=== PATIENT | female | born 1970 | race Caucasian/White ===

== ENCOUNTER → 2017-02-11 | Outpatient (CLI) | payer BC, MEDICARE ==
[2017-02-11 16:00] LABS: Basophils % (A) 0 %; CHCM 32.9; Eosinophils # (A) 0.6 k/uL (0-0.7); Eosinophils % (A) 6 %; HCT 41.8 % (34.0-46.0); HDW 2.54; Luc # (Auto) 0.19; Luc % (Auto) 2; Lymphocytes # (A) 2.3 k/uL (1.0-4.8); Lymphocytes % (A) 24 %; MCH 29.6 pg (25.0-35.0); MCHC 33.4 g/dL (31.0-37.0); MCV 88.5 fL (80.0-100.0); Mean Platelet Volume 6.5; Monocytes # (A) 0.6 k/uL (0-1.0); Monocytes % (A) 6 %; Neutrophils % (A) 62 %; RBC 4.73 m/uL (3.80-5.40); RDW 12.6 % (11.5-15.5); WBC 9.7 k/uL (3.8-10.6); WBC (Perox) 10.13
== END | disposition home or self-care (01) ==
LOC: LABPAT 15:45
PROVIDERS: ATTEND Obstetrics & Gynecology
DX: Z01.812 Encounter for preprocedural laboratory examination (principal)
CPT/HCPCS: 85025

== ENCOUNTER 2017-03-01 08:30 | Inpatient (IN) | payer BC, MEDICARE ==
[2017-02-21 13:54] VITALS: BMI 40.2
[~2017-03-01 08:30] MED LIST: ACETAMINOPHEN TAB 500 MG TAB PO ONE; LIDOCAINE 1% 20 ML VIAL (10MG/ML) FOR IV START INTRADERMA PRN; METOCLOPRAMIDE 5 MG/ML 2 ML VIAL IVP PRN; MIDAZOLAM 2 MG/2 ML VIAL IV PRN; ONDANSETRON 4 MG/2 ML VIAL IVP PRN
[2017-03-01] MEDS ORDERED: LACTATED RINGERS 1,000 ML IV ONE (09:50)
[2017-03-01] MEDS ORDERED: diphenhydrAMINE 50 MG/ML 1 ML VIAL IVP PRN (10:22)
[2017-03-01] MEDS ORDERED: Acetaminophen-Codeine 300-30mg TAB PO PRN (10:22)
[2017-03-01] MEDS ORDERED: IBUPROFEN 600 MG TAB PO PRN (10:22)
[2017-03-01] MEDS ORDERED: SUCCINYLCHOLINE CHLORIDE 100 MG/5 ML SYR IV ONE (11:28)
[2017-03-01] MEDS ORDERED: PROPOFOL 10 MG/ML 20 ML VIAL IV ONE (11:28)
[2017-03-01] MEDS ORDERED: fentaNYL (PF) 50 MCG/ML 2 ML AMP ONE (11:28)
[2017-03-01] MEDS ORDERED: MIDAZOLAM 2 MG/2 ML VIAL ONE (11:28)
[2017-03-01] MEDS ORDERED: ROCURONIUM BROMIDE 10 MG/ML 10 ML VIAL IV ONE (11:28)
[2017-03-01] MEDS ORDERED: LIDOCAINE 1% INJ 10MG/ML (20 ML MDV) ONE (11:28)
[2017-03-01] MEDS ORDERED: GLYCOPYRROLATE 0.2 MG/ML 2 ML VIAL ONE (11:28)
[2017-03-01] MEDS ORDERED: HYDROmorphone (PF) 1 MG/ML ONE (11:28)
[2017-03-01] MEDS ORDERED: NEOSTIGMINE 1 MG/ML 10 ML VIAL ONE (11:28)
[2017-03-01] MEDS ORDERED: SORBITOL 3% IRRIG 3,000 ML BAG IRRIGATION ONE (11:48)
[2017-03-01] MEDS ORDERED: BUPIVACAINE (PF) 0.5% 30 ML VIAL SQ ONE (11:48)
[2017-03-01] MEDS: LACTATED RINGERS 1,000 ML IV SCH ×2 (12:00→14:26)
[2017-03-01] MEDS ORDERED: SODIUM CHLORIDE 0.9% 100 ML with ceFAZolin 2,000 MG IV ONE ×2 (12:06)
[2017-03-01] MEDS ORDERED: CELLULOSE,OXIDIZED 1 EACH EACH MISCELLANE ONE (12:43)
[2017-03-01] MEDS ORDERED: NALOXONE 0.4 MG/ML 1 ML VIAL IV PRN (13:03)
[2017-03-01] MEDS ORDERED: HYDROmorphone PCA 5 MG/25 ML SYRINGE IV PRN (13:03)
--- NOTE | 2017-03-01 13:16 | P.OP ---
Date of Procedure: 03/01/17 Preoperative Diagnosis: #1. 6 cm simple right ovarian cyst #2. Dysfunctional uterine bleeding Postoperative Diagnosis: Same plus #3. Right ovarian endometrioma #4. Pelvic adhesive disease Procedure(s) Performed: #1. Diagnostic laparoscopy 2. Exploratory laparotomy #3. Adhesiolysis #4. Right salpingo-oophorectomy #5. Diagnostic hysteroscopy #. Dilation and curettage Implants: Anesthesia: NAM Surgeon: Buddy Back Manager Grant #1: Elisha Campbell Estimated Blood Loss (ml): 100 IV fluids (ml): 800 Urine output (ml): 70 Pathology: other (#1. Right tube and ovary #2. Endometrial curettings) Condition: stable Disposition: PACU Indications for Procedure: Operative Findings: Preoperative pelvic examination demonstrated a right adnexal fullness with an otherwise roughly 5 week midplane uterus. Intraoperatively, the laparoscope demonstrated a large right ovarian cyst/mass occupying the entire right ovarian fossa. The uterus was densely adherent to it and it was immobile in the pelvis. I was unable to visualize the left tube and ovary. After converting to an open procedure, the ovary was confirmed to be densely adherent into the ovarian fossa and to the back of the uterus. During the process of dissecting it bluntly from the uterus and ovarian fossa, it ruptured spilling chocolate covered fluid into the Danilo. This was thoroughly suctioned and irrigated. The uterus was densely adherent to the rectum with the cul-de-sac entirely obliterated. I was unable to identify the left tube and ovary secondary to dense adhesions as well. Using the hysteroscope, some fluffy tissue was noted inside the cavity of the uterus but there was no clear polyps or significant other pathology noted. The uterus itself sounded to approximately 8 cm in size. A small to moderate amount of tissue was removed with D&C. Description of Procedure: The patient was prepped and draped in usual fashion after general endotracheal anesthesia was administered by the anesthesiologist. Weighted speculum was placed in the anterior lip of the surgical single-tooth tenaculum allowing placement of an acorn cannula. Attention was then turned to the abdomen after draining the bladder approximately 30 mL of clear liz urine. A half a centimeter incision was made in a semilunar fashion within the umbilicus allowing insertion of a 5 mm trocar under direct visualization without difficulty. A pneumoperitoneum was created and a site selected in the midline just above the pubic symphysis where a half a centimeter incision was made in the transverse plane allowing insertion of a 5 mm trocar under direct visualization without difficulty. The blunt probe was then placed in Trendelenburg positioning used with the findings as noted above. The ovary was densely adherent into the fossa and to the posterior portion of the uterus. The uterus was densely adherent to the rectum below it and the left tube and ovary could not be identified. As it was apparent that we would be unable to proceed laparoscopically, the pneumoperitoneum was evacuated through the umbilical incision and the incision closed with an interrupted subcuticular stitch of 4-0 Vicryl. The remainder trocar was removed and the incision extended to a small laparotomy. This was extended into the abdominal cavity with minimal difficulty. Pelvic washings were taken and the pelvis explored with the findings as noted above. Gentle blunt dissection was carried out to attempt to free and mobilize the ovary from the surrounding tissues. Along the ovarian fossa just superior to the ovary, the cyst ruptured spilling chocolate- colored fluid into the pelvis. Further blunt dissection was carried out to free the majority of the ovary and tubal complex. A Elizabeth retractor was placed and the bowel was packed from the pelvis allowing better exposure. Once it was apparent that the tubo-ovarian complex was free enough, [place] clamps were placed across it at the utero ovarian ligament and across the tube as well as across the infundibulopelvic ligament and underneath the tube allowing the tips to meet. The specimen was then divided from the patient with an intervening open portion in the midportion clamped with a Florecita clamp. Each of the pedicles was suture-ligated with a transfixion stitch of 0 Vicryl. There was clearly some ovarian capsule left attached to the sidewall. As much as could be safely removed was removed and sent with the specimen but is relatively likely that a portion of the ovarian capsule remains on the pelvic sidewall. Significant and thorough irrigation was then carried out and any small points of bleeding noted in the pelvis were made hemostatic with the Bovie. There was no apparent evidence of the sigmoid colon or rectum having any involvement with the adhesions or any apparent damage. Once the bleeding was minimal and well controlled, a piece of Interceed was placed into the surgical bed and across the utero-ovarian ligament to attempt to decrease further adhesions. The instrumentation and packing were then removed and the parietal peritoneum was loosely reapproximated. The layer of muscles were examined and found to be hemostatic. The fascia was closed with 2 running stitches of 0 Vicryl proceeding from the lateral margins to the midpoint. The subcutaneous tissues were irrigated, made hemostatic with the Bovie, and reapproximated with a running stitch of 0 Vicryl. The skin was reapproximated with regular surgical lewis. Attention was then returned to the vagina where the weighted speculum was replaced and acorn cannula removed. Serial dilation was carried out to admit the diagnostic hysteroscope which was placed into the endometrial cavity. There was fluffy tissue noted throughout but technical difficulties were encountered secondary to the scope impacting the patient's bottom and the retractors making exploration of the fundus of the uterus more difficult. As the specimen was more important, the hysteroscopy was abandoned and further dilation carried out to admit a small sharp curette which was utilized to thoroughly and circumferentially curet the uterus and endometrial cavity with the specimen being collected on a Telfa placed in the vagina. Once adequate specimen had been retrieved and the typical gritty texture was encountered, the polyp forceps was introduced and no further tissue noted. Allis her mentation was then removed. There was no ongoing bleeding from the tenaculum sites. Estimated blood loss for the entire case was approximately 100 mL. There were no complications aside from the need to convert to a laparotomy rather than a laparoscopy. All sponge, instrument, and needle counts were correct for each portion of the procedure. The patient tolerated the procedure well and proceeded to the recovery room in stable condition
[2017-03-01] MEDS: HYDROmorphone 1 MG/ML 1 ML SYRINGE IVP PRN ×2 (13:30→13:50)
[2017-03-01] MEDS ORDERED: METOCLOPRAMIDE 5 MG/ML 2 ML VIAL IVP PRN (17:14)
[2017-03-01] MEDS ORDERED: ONDANSETRON 4 MG/2 ML VIAL IVP PRN (17:15)
[2017-03-01] MEDS: KETOROLAC 30 MG/ML 1 ML VIAL IVP PRN ×2 (18:06→23:45)
[2017-03-01] MEDS: ALBUTEROL NEBULIZED 2.5 MG/3 ML INHALATION PRN (21:05)
[2017-03-01] MEDS: SENNOSIDES-DOCUSATE SODIUM 1 EACH TAB PO SCH (21:51)
[2017-03-02] MEDS: KETOROLAC 30 MG/ML 1 ML VIAL IVP PRN ×3 (05:14→18:25)
[2017-03-02] MEDS: LACTATED RINGERS 1,000 ML IV SCH (05:14)
[2017-03-02 06:40] LABS: Basophils % (A) 0 %; CH 29.2; CHCM 31.9; Eosinophils # (A) 0.2 k/uL (0-0.7); Eosinophils % (A) 1 %; HCT 35.9 % (34.0-46.0); HDW 2.11; HGB 11.5 gm/dL (11.4-16.0); Luc # (Auto) 0.23; Luc % (Auto) 2; Lymphocytes # (A) 2.2 k/uL (1.0-4.8); Lymphocytes % (A) 18 %; MCH 29.4 pg (25.0-35.0); Mean Platelet Volume 6.8; Monocytes # (A) 0.9 k/uL (0-1.0); Monocytes % (A) 7 %; Neutrophils % (A) 72 %; RDW 13.3 % (11.5-15.5); WBC 12.5 k/uL (3.8-10.6)
[2017-03-02] MEDS: ALBUTEROL NEBULIZED 2.5 MG/3 ML INHALATION PRN (07:32)
--- NOTE | 2017-03-02 08:29 | P.PN ---
Subjective The patient reports good pain control but denies any flatus at this time. She is hoping to ambulate. Objective - Vital Signs Vital signs: Vital Signs Temp 98.3 F 03/02/17 00:00 Pulse 80 03/02/17 07:43 Resp 20 03/02/17 00:00 BP 101/52 03/02/17 00:00 Pulse Ox 94 L 03/02/17 07:33 Intake & Output 03/01/17 03/02/17 03/02/17 18:59 06:59 18:59 Intake Total 2150 360 Output Total 200 675 Balance 1950 -315 Intake: IV 2150 Oral 360 Output: Urine 100 675 Estimated Blood Loss 100 Other: Voiding Method Indwelling Catheter # Voids 1 - Exam In general, this is a well-developed, moderately obese white female in no acute distress. Her abdomen is nondistended, obese, soft, nontender, and without any palpable masses. The incision is clean, dry, and intact after the dressing has been removed. Her extremities are without any cyanosis, clubbing, or edema and are nontender to palpation bilaterally. - Labs CBC & Chem 7: 03/02/17 06:20 Labs: Abnormal Lab Results - Last 24 Hours (Table) 03/02/17 Range/Units 06:20 WBC 12.5 H (3.8-10.6) k/uL Neutrophils # 9.0 H (1.3-7.7) k/uL Assessment and Plan (1) Endometrioma of ovary Status: Acute Plan: The findings at the time surgery were thoroughly discussed with the patient. We will advance her diet slowly. Once gas is passed, her diet will be advanced to regular. I have strongly encouraged ambulate in the halls routinely. 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
[2017-03-02] MEDS: SENNOSIDES-DOCUSATE SODIUM 1 EACH TAB PO SCH ×2 (08:40→20:35)
[2017-03-02] MEDS: Acetaminophen-Codeine 300-30mg TAB PO PRN ×2 (08:40→09:50)
[2017-03-02] MEDS: IPRATROPIUM-ALBUTEROL 3 ML NEB INHALATION PRN ×2 (15:49→20:55)
[2017-03-02] MEDS: SIMETHICONE 80 MG CHEWABLE PO PRN (20:46)
[2017-03-03] MEDS: KETOROLAC 30 MG/ML 1 ML VIAL IVP PRN ×2 (00:22→06:46)
[2017-03-03 00:33] VITALS: RESP 16
[2017-03-03] MEDS: SIMETHICONE 80 MG CHEWABLE PO PRN (06:59)
--- NOTE | 2017-03-03 08:02 | P.DS ---
Providers Date of admission: 03/01/17 13:10 Expected date of discharge: 03/03/17 Attending physician: Buddy Back Primary care physician: David Augustine - Discharge Diagnosis(es) (1) Endometrioma of ovary Current Visit: Yes Status: Acute Hospital Course: The patient is a 46-year-old woman initially referred for findings of dysfunctional uterine bleeding and a reported 6 cm simple right ovarian cyst. After discussion the office for options the for treatment, we agreed to proceed to the operating room for laparoscopic removal of the right tube and ovary and hysteroscopy with D&C. In the operating room, she was found to have the mass be significantly larger than it was initially reported and it was densely adherent to the posterior portion of the uterus as well as the ovarian fossa and sigmoid colon/rectum. No progress could be made laparoscopically leading to exploratory laparotomy. At laparotomy, the right tube and ovary were mobilized enough to be able to remove them though a portion or remnant of the ovary may remain on the pelvic sidewall. The cyst was ruptured intraoperatively and spilled chocolate covered fluid into the pelvis consistent with an endometrioma. The left tube and ovary could not be identified secondary to adhesive disease and the cul-de-sac had been entirely obliterated. The D&C was carried out following laparotomy and the a minimal to average amount of tissue was returned. Pathology is pending for all at this time though the pelvic washings were negative. She had a relatively uncomplicated postoperative course and was tolerating regular diet by the morning of postoperative day #2. Gas was regular and her pain was well controlled with oral pain medications. She was deemed stable for discharge on postoperative day #2 was discharged home to follow-up in the office in 2 weeks for an incision check and 6 weeks routinely. Discharge instructions included calling for any significantly increased from fever, pain, incisional complaints, GI concerns, or anything else that concerned her. She was additionally instructed to do no heavy lifting over the next 4-6 weeks. Consideration will be made for treatment with Lupron in the outpatient phase and will depend to some degree upon her degree of discomfort after removal of the right tube and ovary. She understood her instructions and agrees to follow up as noted above. Discharge medications included any home medications that she takes on a routine basis as well as a prescription for Ultram, 1-2 by mouth every 6 hours when necessary pain, #30 dispensed with no refills. Discharge hemoglobin and hematocrit were 11.5 and 35.9 respectively. Procedures: #1. Diagnostic laparoscopy #2. Exploratory laparotomy #3. Adhesio lysis #4. Right salpingo-oophorectomy #5. Diagnostic hysteroscopy #6. Dilation and curettage Patient Condition at Discharge: Stable Plan - Discharge Summary New Discharge Prescriptions: No Action Ibuprofen 800 - 1,000 mg PO TID PRN PRN Reason: Pain Fluticasone/Salmeterol [Advair 500-50 Diskus] 1 inhalation PO RT-BID Albuterol Sulfate [Proair Hfa] 1 - 2 puff INHALATION RT-Q6H PRN PRN Reason: sob Ipratropium-Albuterol Nebulize [Duoneb 0.5 mg-3 mg/3 ml Soln] 1 dose INHALATION RT-QID PRN PRN Reason: sob Acetaminophen [Tylenol Extra Strength] 1,000 mg PO Q4H PRN PRN Reason: Pain Cetirizine HCl [Zyrtec] 10 mg PO DAILY diphenhydrAMINE [Benadryl] 25 mg PO DAILY PRN PRN Reason: Congestion Discharge Medication List Acetaminophen [Tylenol Extra Strength] 1,000 mg PO Q4H PRN 02/21/17 [History] Albuterol Sulfate [Proair Hfa] 1 - 2 puff INHALATION RT-Q6H PRN 02/21/17 [ History] Cetirizine HCl [Zyrtec] 10 mg PO DAILY 02/21/17 [History] Fluticasone/Salmeterol [Advair 500-50 Diskus] 1 inhalation PO RT-BID 02/21/17 [ History] Ibuprofen 800 - 1,000 mg PO TID PRN 02/21/17 [History] Ipratropium-Albuterol Nebulize [Duoneb 0.5 mg-3 mg/3 ml Soln] 1 dose INHALATION RT-QID PRN 02/21/17 [History] diphenhydrAMINE [Benadryl] 25 mg PO DAILY PRN 02/21/17 [History] Follow up Appointment(s)/Referral(s): Budyd Back MD [STAFF PHYSICIAN] - 2 Weeks (You have an appointment with Dr Back on) Patient Instructions/Handouts: Lysis of Abdominal Adhesions (DC), Salpingo- oophorectomy (DC) Activity/Diet/Wound Care/Special Instructions: No driving, no heavy lifting, no pools, hot tubs, or bath tubs. Limit steps. May shower. Keep steri strips in place. Notify Dr Back is you develop a fever, chills, vomitting, purulent drainage from your incision, vaginal bleeding, increasing pain, of if you have any other questions or concerns. Discharge Disposition: HOME SELF-CARE
[2017-03-03] MEDS: SENNOSIDES-DOCUSATE SODIUM 1 EACH TAB PO SCH (08:20)
[2017-03-03 08:34] VITALS: BP 113/63; TEMP 98
[2017-03-03] MEDS ORDERED: LORATADINE 10 MG TAB PO SCH (09:00)
[2017-03-03] MEDS: IPRATROPIUM-ALBUTEROL 3 ML NEB INHALATION PRN (09:07)
[2017-03-03 09:10] VITALS: PULSE 80
== END 2017-03-03 11:22 | disposition home or self-care (01) | DRG 743 ==
LOC: OR 08:30 → 6PED 13:10
PROVIDERS: ADMIT Obstetrics & Gynecology; ATTEND Obstetrics & Gynecology
PROC: 0UT50ZZ Resection of Right Fallopian Tube, Open Approach (ICD-10-PCS; principal; 2017-03-01 10:00)
PROC: 0UDB8ZX Extraction of Endometrium, Via Natural or Artificial Opening Endoscopic, Diagnostic (ICD-10-PCS; principal; 2017-03-01 10:00)
PROC: 0UT00ZZ Resection of Right Ovary, Open Approach (ICD-10-PCS; principal; 2017-03-01 10:00)
DX: N83.201 Unspecified ovarian cyst, right side (principal); J44.9 Chronic obstructive pulmonary disease, unspecified; N80.1 Endometriosis of ovary; H54.8 Legal blindness, as defined in USA; N93.8 Other specified abnormal uterine and vaginal bleeding; Z79.899 Other long term (current) drug therapy; Z88.5 Allergy status to narcotic agent; F17.200 Nicotine dependence, unspecified, uncomplicated; Z53.31 Laparoscopic surgical procedure converted to open procedure
CPT/HCPCS: 81025; 85025; 88108; 88305; 94640

== ENCOUNTER → 2017-07-29 | Outpatient (CLI) | payer BC, MEDICARE ==
--- NOTE | 2017-08-02 13:27 | CT ---
EXAMINATION TYPE: CT ChestAbdPelvis w con DATE OF EXAM: 07/29/2017 COMPARISON: Prior CT chest abdomen pelvis 03/25/2017 from outside institution. HISTORY: Ovarian cancer CT DLP: 2544.3 mGycm Automated exposure control for dose reduction was used. CONTRAST: CT scan of the chest, abdomen and pelvis is performed with Oral Contrast and with IV Contrast, patien t injected with 100 mL of Omnipaque 300. FINDINGS: Umbilical hernia is noted, some slight increased density present in the adjacent fat may be postproce dural. Midline incision is present in the infraumbilical location. Associated skin thickening present . LUNGS: The lungs are grossly clear, there is no concerning parenchymal mass or nodule identified. T here is no pleural effusion or pneumothorax seen. The tracheobronchial tree is patent. MEDIASTINUM: There are no greater than 1 cm hilar or mediastinal lymph nodes. No pericardial effusi on is seen. AORTA: No significant abnormality is seen. OTHER: No additional significant abnormality is seen. LIVER/GB: The liver remains enlarged and shows low attenuation suggestive of hepatic steatosis. Multi ple stones are present within the gallbladder as on prior. PANCREAS: No significant abnormality is seen. SPLEEN: No significant abnormality is seen. ADRENALS: No significant abnormality is seen. KIDNEYS: No significant abnormality is seen. REPRODUCTIVE ORGANS: Uterus and adnexal structures have been removed in the interval. Some minimal fl uid attenuation present in the left adnexal region may be postoperative. BOWEL: No significant abnormality is seen. FREE AIR: No Free Air visible. ASCITES: None seen. RETROPERITONEAL ADENOPATHY: No retroperitoneal adenopathy is seen. LYMPH NODES: No greater than 1 cm abdominal or pelvic lymph nodes are appreciated. URINARY BLADDER: No significant abnormality is seen. PELVIC ADENOPATHY: None visualized. OSSEOUS STRUCTURES: No significant abnormality is seen. IMPRESSION: Interval surgery. No other significant interval change evident. Cholelithiasis. Additiona l findings above.
== END | disposition home or self-care (01) ==
LOC: RADCTMAIN 12:24
PROVIDERS: ATTEND Internal Medicine Hematology & Oncology
DX: K80.20 Calculus of gallbladder without cholecystitis without obstruction (principal); C56.1 Malignant neoplasm of right ovary; Z98.890 Other specified postprocedural states
CPT/HCPCS: 71260; 74177; Q9967

== ENCOUNTER 2018-04-16 18:48 | Emergency (ER) | payer BC, MEDICARE ==
[2018-04-16] MEDS ORDERED: KETOROLAC 30 MG/ML 1 ML VIAL IVP STA (20:10)
[2018-04-16] MEDS ORDERED: SODIUM CHLORIDE 0.9% 1,000 ML IV STA (20:10)
[2018-04-16 20:25] LABS: Appearance,Urine Clear (Clear); Bilirubin,Urine Negative (Negative); Blood,Urine Negative (Negative); Color,Urine Light Yellow; Glucose,Urine (UA) Negative (Negative); Ketones,Urine Negative (Negative); Leukocyte Esterase,Urine Negative (Negative); Nitrite,Urine Negative (Negative); PH, Urine 7.5 (5.0-8.0); Protein,Urine Negative (Negative); Specific Gravity,Urine 1.013 (1.001-1.035); Urobilinogen,Urine <2.0 mg/dL (<2.0)
--- NOTE | 2018-04-16 20:48 | ED ---
General Adult HPI - General Chief complaint: Back Pain/Injury Stated complaint: BACK PAIN Time Seen by Provider: 04/16/18 19:32 Source: patient, RN notes reviewed Mode of arrival: wheelchair Limitations: no limitations - History of Present Illness Initial comments: 48-year-old female presents to the emergency department for a chief complaint of back pain 2 weeks. Patient denies any injuries besides falling down a set of stairs about 2 months ago. Patient has a history of ovarian cancer who had a total hysterectomy one year ago. Patient states the pain is now in her back and hip and radiating into her abdomen. Patient states she is requiring the help of her when walking at home. Patient states she also has some swelling over the left lower back intermittently. Patient has been urinating normally. Patient denies shooting pain into the left leg. Patient denies any saddle anesthesia. Patient has no other complaints at this time including shortness of breath, chest pain, abdominal pain, nausea or vomiting, headache, or visual changes. - Related Data Home Medications Medication Instructions Recorded Confirmed Acetaminophen [Tylenol Extra 1,000 mg PO Q4H PRN 02/21/17 03/01/17 Strength] Albuterol Sulfate [Proair Hfa] 1 - 2 puff INHALATION RT-Q6H PRN 02/21/17 Cetirizine HCl [Zyrtec] 10 mg PO DAILY 02/21/17 03/01/17 Fluticasone/Salmeterol [Advair 1 inhalation PO RT-BID 02/21/17 03/01/17 500-50 Diskus] Ibuprofen 800 - 1,000 mg PO TID PRN 02/21/17 03/01/17 Ipratropium-Albuterol Nebulize 1 dose INHALATION RT-QID PRN 02/21/17 03/01/17 [Duoneb 0.5 mg-3 mg/3 ml Soln] diphenhydrAMINE [Benadryl] 25 mg PO DAILY PRN 02/21/17 03/01/17 Previous Rx's Medication Instructions Recorded Cyclobenzaprine [Flexeril] 5 mg PO TID #20 tablet 04/16/18 Allergies Allergy/AdvReac Type Severity Reaction Status Date / Time morphine AdvReac states Verified 04/16/18 18:54 "b/p went low" Review of Systems ROS Statement: Those systems with pertinent positive or pertinent negative responses have been documented in the HPI. ROS Other: All systems not noted in ROS Statement are negative. Past Medical History Past Medical History: COPD, Eye Disorder Additional Past Medical History / Comment(s): cyst rt ovary,legally blind- genetic born with cataracts,kathie glaucoma,migraines-,heart murmur,varicose veins, constipation,gall stones, ovarian cancer (in remission.) History of Any Multi-Drug Resistant Organisms: None Reported Past Surgical History: Adenoidectomy, Bladder Surgery, Hysterectomy, Tonsillectomy Additional Past Surgical History / Comment(s): mult eye surg,kathie cataracts, detatched retina rt eye,blebs removed kathie eyes,bladder susp x2 Past Anesthesia/Blood Transfusion Reactions: Previous Problems w/ Anesthesia Additional Past Anesthesia/Blood Transfusion Reaction / Comment(s): states "stopped breathing when in recovery for 2nd bladder susp." Past Psychological History: No Psychological Hx Reported Smoking Status: Former smoker Past Alcohol Use History: None Reported Past Drug Use History: None Reported - Past Family History Mother Family Medical History: Deep Vein Thrombosis (DVT) Father Family Medical History: CVA/TIA General Exam Limitations: no limitations General appearance: alert, in no apparent distress Head exam: Present: atraumatic, normocephalic, normal inspection Eye exam: Present: normal appearance, PERRL, EOMI. Absent: scleral icterus, conjunctival injection, periorbital swelling ENT exam: Present: normal exam, mucous membranes moist Neck exam: Present: normal inspection, full ROM. Absent: tenderness, meningismus, lymphadenopathy Respiratory exam: Present: normal lung sounds bilaterally. Absent: respiratory distress, wheezes, rales, rhonchi, stridor Cardiovascular Exam: Present: regular rate, normal rhythm, normal heart sounds. Absent: systolic murmur, diastolic murmur, rubs, gallop, clicks GI/Abdominal exam: Present: soft, tenderness (LLQ tenderness), normal bowel sounds. Absent: distended, guarding, rebound, rigid Extremities exam: Present: normal capillary refill (< 2 secnds in LLE, pedal pulse 2+), other (sensation intact in LLE). Absent: full ROM (flexion of knee to 90 dgrees in LLE, flexion of hip to 45 degrees), tenderness, pedal edema, joint swelling, calf tenderness (no left calf tenderess) Back exam: Present: tenderness (tenderness in left lower back including over SI joint, no lumbar spine tenderness). Absent: full ROM (patient rolled over on bed for exam, stated too m), vertebral tenderness (no lumbar spine tenderness) Neurological exam: Present: alert, oriented X3, CN II-XII intact. Absent: motor sensory deficit Psychiatric exam: Present: normal affect, normal mood Skin exam: Present: warm, dry, intact, normal color. Absent: rash Course Vital Signs 04/16/18 04/16/18 18:54 22:45 Temperature 98.3 F 99.3 F Pulse Rate 78 69 Respiratory 18 16 Rate Blood Pressure 145/78 126/58 O2 Sat by Pulse 97 96 Oximetry Medical Decision Making - Medical Decision Making 48-year-old female presents to the emergency department for a chief complaint of left lower back pain 2 weeks. Patient does have a history of ovarian cancer. Patient denies any shooting pain down the leg. Patient denies saddle anesthesia or bladder or bowel changes. I did offer pain medications during her stay multiple times which she refused. Vitals WNL. CBC CMP unremarkable. Urine clear. CT of the lumbar spine shows spondylitic changes at L5 to S1. No fracture seen. Multiple calcified gallstones are noted. Negative CT of the left hip. Minimal acetabular spurring. No fracture. CT abdomen and pelvis shows postsurgical changes and small ventral hernia at the umbilicus. This appears increased slightly compared to old computed tomography scan. No evidence of metastatic disease. Discussed with patient that this is likely musculoskeletal at this point. However, I did discuss possibility of PET scan and following up with oncology. She will follow up with primary care in 1-2 days. She has ultram at home and I did give her Flexeril here. Patient feels ok to go home. She knows to come back if she has worsening symptoms. - Lab Data Result diagrams: 04/16/18 20:50 04/16/18 20:50 Lab Results 04/16/18 04/16/18 04/16/18 Range/Units 20:13 20:50 20:50 WBC 8.1 (3.8-10.6) k/uL RBC 4.36 (3.80-5.40) m/uL Hgb 12.4 (11.4-16.0) gm/dL Hct 37.8 (34.0-46.0) % MCV 86.7 (80.0-100.0) fL MCH 28.4 (25.0-35.0) pg MCHC 32.8 (31.0-37.0) g/dL RDW 14.2 (11.5-15.5) % Plt Count 275 (150-450) k/uL Neutrophils % 68 % Lymphocytes % 21 % Monocytes % 6 % Eosinophils % 3 % Basophils % 0 % Neutrophils # 5.5 (1.3-7.7) k/uL Lymphocytes # 1.7 (1.0-4.8) k/uL Monocytes # 0.5 (0-1.0) k/uL Eosinophils # 0.3 (0-0.7) k/uL Basophils # 0.0 (0-0.2) k/uL Sodium 140 (137-145) mmol/L Potassium 4.3 (3.5-5.1) mmol/L Chloride 108 H (98-107) mmol/L Carbon Dioxide 26 (22-30) mmol/L Anion Gap 6 mmol/L BUN 13 (7-17) mg/dL Creatinine 0.60 (0.52-1.04) mg/dL Est GFR (CKD-EPI)AfAm >90 (>60 ml/min/1.73 sqM) Est GFR (CKD-EPI)NonAf >90 (>60 ml/min/1.73 sqM) Glucose 88 (74-99) mg/dL Calcium 9.1 (8.4-10.2) mg/dL Total Bilirubin 0.9 (0.2-1.3) mg/dL AST 27 (14-36) U/L ALT 26 (9-52) U/L Alkaline Phosphatase 61 (38-126) U/L Total Protein 6.6 (6.3-8.2) g/dL Albumin 3.8 (3.5-5.0) g/dL Amylase 40 (30-110) U/L Lipase 27 (23-300) U/L Urine Color Light Yellow Urine Appearance Clear (Clear) Urine pH 7.5 (5.0-8.0) Ur Specific [place] 1.013 (1.001-1.035) Urine Protein Negative (Negative) Urine Glucose (UA) Negative (Negative) Urine Ketones Negative (Negative) Urine Blood Negative (Negative) Urine Nitrite Negative (Negative) Urine Bilirubin Negative (Negative) Urine Urobilinogen <2.0 (<2.0) mg/dL Ur Leukocyte Esterase Negative (Negative) Disposition Clinical Impression: Back pain Disposition: HOME SELF-CARE Condition: Good Instructions: Acute Low Back Pain (ED) Additional Instructions: Please take Motrin and Tylenol for pain. Take the Ultram you have at home if pain is severe. You may take Flexeril as needed. Follow-up with primary care and oncology in one to 2 days. As discussed, you may need a PET scan if oncologist thinks necessary. Return to the emergency department if you have any worsening symptoms or bladder bowel changes. Prescriptions: Cyclobenzaprine [Flexeril] 5 mg PO TID #20 tablet Is patient prescribed a controlled substance at d/c from ED?: No Referrals: David Augustine MD [Primary Care Provider] - 1-2 days Time of Disposition: 23:40
[2018-04-16 20:59] LABS: Basophils % (A) 0 %; Eosinophils # (A) 0.3 k/uL (0-0.7); Eosinophils % (A) 3 %; HCT 37.8 % (34.0-46.0); HGB 12.4 gm/dL (11.4-16.0); Lymphocytes # (A) 1.7 k/uL (1.0-4.8); Lymphocytes % (A) 21 %; MCH 28.4 pg (25.0-35.0); MCHC 32.8 g/dL (31.0-37.0); MCV 86.7 fL (80.0-100.0); Mean Platelet Volume 6.7; Monocytes # (A) 0.5 k/uL (0-1.0); Monocytes % (A) 6 %; Neutrophils # (A) 5.5 k/uL (1.3-7.7); Neutrophils % (A) 68 %; Platelet Count 275 k/uL (150-450); RBC 4.36 m/uL (3.80-5.40); RDW 14.2 % (11.5-15.5); WBC 8.1 k/uL (3.8-10.6)
[2018-04-16 21:16] LABS: ALT 26 U/L (9-52); AST 27 U/L (14-36); Albumin 3.8 g/dL (3.5-5.0); Alkaline Phosphatase 61 U/L (38-126); Amylase 40 U/L (30-110); Anion Gap 6 mmol/L; Blood Urea Nitrogen 13 mg/dL (7-17); Calcium 9.1 mg/dL (8.4-10.2); Carbon Dioxide 26 mmol/L (22-30); Chloride 108 mmol/L (98-107); Glucose 88 mg/dL (74-99); Lipase 27 U/L (23-300); Potassium 4.3 mmol/L (3.5-5.1); Sodium 140 mmol/L (137-145); Total Bilirubin 0.9 mg/dL (0.2-1.3); Total Protein 6.6 g/dL (6.3-8.2)
[2018-04-16 22:46] VITALS: RESP 16
--- NOTE | 2018-04-16 22:49 | CT ---
EXAMINATION TYPE: CT hip LT w con DATE OF EXAM: 04/16/2018 COMPARISON: HISTORY: HX. OF OVARIAN CA. PT. C/O LOWER ABDOMINAL PAIN, BACK PAIN AND LEFT HIP PAIN. CT DLP: mGycm Automated exposure control for dose reduction was used. CONTRAST: Performed with IV Contrast, patient injected with mL of Isovue 300. FINDINGS: Left hip joint space is fairly normal. I see no fracture nor dislocation. Left sacroiliac joint is in tact. There is no evidence of any significant hip joint effusion. There is no sign of pelvic mass. Th ere is degenerative disc space narrowing at L5-S1. IMPRESSION: NEGATIVE CT SCAN OF THE LEFT HIP JOINT. MINIMAL ACETABULAR SPURRING. NO FRACTURE.
--- NOTE | 2018-04-16 22:53 | CT ---
EXAMINATION TYPE: CT lumbar spine w con DATE OF EXAM: 04/16/2018 COMPARISON: HISTORY: HX. OF OVARIAN CA. PT. C/O LOWER ABDOMINAL PAIN, BACK PAIN AND LEFT HIP PAIN. CT DLP: mGycm Automated exposure control for dose reduction was used. CONTRAST: CT scan of the lumbar is performed with IV Contrast, patient injected with 100 mL of Isovue 300. Findings Lumbar vertebra have normal alignment. There is narrowing at L5-S1 disc space. The other disc spaces are normal. There is no lumbar paraspinal mass. Posterior elements are intact. There is no spinal memo nosis. There is mild posterior disc bulging at L4-5 L5-S1. Sacroiliac joints appear intact. There is no compression fracture. I see no focal bone destruction. There is no pathologic enhancement. IMPRESSION: Spondylotic changes at L5-S1. No fracture seen. Multiple calcified gallstones are noted.
--- NOTE | 2018-04-16 22:58 | CT ---
EXAMINATION TYPE: CT abdomen pelvis w con DATE OF EXAM: 04/16/2018 COMPARISON: HISTORY: ABDOMINAL PAIN, BACK PAIN AND LEFT HIP PAIN HX. OF OVARIAN CA\ CT DLP: 2077.10 mGycm Automated exposure control for dose reduction was used. TECHNIQUE: Helical acquisition of images was performed from the lung bases through the pelvis. CONTRAST: Performed without Oral Contrast and with IV Contrast, patient injected with 100 mL of Isovue 300. FINDINGS: Lung bases show subsegmental atelectasis bilaterally. There is no pleural effusion. Heart size is nor mal. Liver shows no focal defect. Bile ducts are not dilated. There are multiple calcified gallstones. Spl een appears normal. There is no pancreatic mass. There is no adrenal mass. Kidneys show satisfactory contrast opacification. There is no hydronephrosi s. There is postsurgical changes at the umbilicus. There is no intestinal wall thickening. There are no dilated loops. Bladder distends smoothly. There is no pelvic mass. There is hysterectomy. There is no retroperitoneal adenopathy. There is no sign of ascites or free air. There is no evidence of pelv ic lymphadenopathy. Appendix is not seen. There is no sign of appendicitis. IMPRESSION: THERE ARE POSTSURGICAL CHANGES AND SMALL VENTRAL HERNIA AT THE UMBILICUS. THIS APPEARS INCREASED SLIG HTLY COMPARED TO OLD CT SCAN OF 07/29/2017. NO EVIDENCE OF METASTATIC DISEASE. CHOLELITHIASIS. THERE IS INCREASED SUBSEGMENTAL ATELECTASIS AT THE LUNG BASES COMPARED TO OLD EXAM.
[2018-04-16] MEDS ORDERED: CYCLOBENZAPRINE 10 MG TAB PO STA (23:40)
[2018-04-16 23:56] VITALS: BP 128/60; PULSE 74; TEMP 97.5
== END 2018-04-17 01:00 | disposition home or self-care (01) ==
LOC: EC 18:48
DX: M54.5 Low back pain (principal); K80.80 Other cholelithiasis without obstruction; J44.9 Chronic obstructive pulmonary disease, unspecified; H54.8 Legal blindness, as defined in USA; K43.9 Ventral hernia without obstruction or gangrene; Z85.43 Personal history of malignant neoplasm of ovary; Z87.891 Personal history of nicotine dependence; Z90.710 Acquired absence of both cervix and uterus; Z98.890 Other specified postprocedural states; Z79.51 Long term (current) use of inhaled steroids; Z79.899 Other long term (current) drug therapy; Z88.5 Allergy status to narcotic agent
CPT/HCPCS: 36415; 80053; 82150; 83690; 85025; 81003; 87086; 72132; 74177; 73701; 99284; 96374; 96361; J1885; Q9967

== ENCOUNTER → 2019-07-11 | Outpatient (CLI) | payer OTHER, MEDICARE | LOC: LABWHC1 11:30 | PROVIDERS: ATTEND Internal Medicine Endocrinology, Diabetes & Metabolism | DX: E03.8 Other specified hypothyroidism (principal) | CPT/HCPCS: 36415; 84443 ==

== ENCOUNTER → 2019-08-04 | Outpatient (CLI) | payer OTHER, MEDICARE | END | disposition home or self-care (01) | LOC: LABWHC1 11:13 | PROVIDERS: ATTEND Internal Medicine Endocrinology, Diabetes & Metabolism | DX: E03.8 Other specified hypothyroidism (principal) | CPT/HCPCS: 36415; 84443 ==

== ENCOUNTER → 2019-09-10 | Outpatient (CLI) | payer OTHER, MEDICARE ==
--- NOTE | 2019-09-11 07:06 | CT ---
EXAMINATION TYPE: CT soft tissue neck wo/w con DATE OF EXAM: 09/10/2019 HISTORY: Thyroid nodule ovarian ca COMPARISON: CT chest July 29, 2017 CT DLP: 1330 mGycm. Automated Exposure Control for Dose Reduction was Utilized. TECHNIQUE: CT scan of the neck is performed without and with IV Contrast, patient injected with 100 mL of Isovue 300, axial images are obtained, coronal and sagittal reformatted images are reviewed. FINDINGS: Airway: Thyroid gland remains overall normal in size without discrete nodule identified on CT. Ultras ound noted more sensitive in assessing for subcentimeter nodules. No significant change from 2017 CT. There is fullness filling the vallecula at base of tongue, this could reflect lymphoid hypertrophy as no definitive mass is identified at this level. Correlate clinically for recent or active tonsillar infection. Consider short-term follow-up or direct visualization based on clinical correlation. Sligh t asymmetric thickening left aryepiglottic fold axial image 44 is also noted. Parotid/submandibular glands: No gross abnormality seen. Carotid/Vascular Structures: No significant plaque or stenosis carotid bulb level bilaterally. Osseous Structures: Posterior spur disc complex effaces the anterior thecal sac C4-C5 level sagittal image 52 Other: Scleral buckle right globe. No greater than 1 cm adenopathy. IMPRESSION: Normal-sized thyroid without discrete nodules. Other findings as noted above.
== END | disposition home or self-care (01) ==
LOC: RADCTMAIN 16:33
PROVIDERS: ATTEND Internal Medicine Endocrinology, Diabetes & Metabolism
DX: E04.1 Nontoxic single thyroid nodule (principal)
CPT/HCPCS: 70492; Q9967

== ENCOUNTER 2021-07-03 00:03 | Emergency (ER) | payer BC, MEDICARE ==
[2021-07-03] MEDS ORDERED: HYDROmorphone 0.5 MG/0.5 ML SYRINGE IVP STA (02:37)
[2021-07-03] MEDS ORDERED: ONDANSETRON 4 MG/2 ML VIAL IVP STA (02:37)
--- NOTE | 2021-07-03 03:29 | CT ---
EXAMINATION TYPE: CT soft tissue neck w con DATE OF EXAM: 07/03/2021 COMPARISON: 09/10/2019 HISTORY: post lymphnode revomal. swelling at surgical site. CT DLP: 386.7 mGycm Automated exposure control for dose reduction was used. CONTRAST: Performed with IV Contrast, patient injected with 100ml mL of Isovue 300. Images obtained from the top of the aortic arch to the top of the orbits with IV contrast. There is normal branching pattern of the great vessels on the aortic arch. There is arterial flow in the carotid and vertebral arteries. There is contrast opacification of the jugular veins. Epiglottis is normal. Trachea appears normal. Prevertebral soft tissues are intact. The tongue appears normal. T here is no evidence of pharyngeal mass. The tonsils and adenoids appear normal. There is left anterior triangle fluid collection that is irregular and measures 4.5 x 2.5 cm anterior to the sternocleidomastoid mastoid muscle. The submandibular salivary glands are fairly symmetric. P arotid glands are symmetric. There is normal aeration of the paranasal sinuses. I see no focal bone d estruction. There is no evidence of orbital mass. Cervical spine is intact. There is mild degenerativ e spurring at C4-5 posteriorly. There is bony spinal canal is narrowed to 5 mm. I see no significant cervical lymphadenopathy. IMPRESSION: Irregular fluid collection in the subcutaneous tissues extending deep to the anterior aspect of the s ternocleidomastoid mastoid muscle and has density of 34. This could be a hematoma. Abscess not exclud ed. C4-5 bony spinal stenosis. Encroachment on the spinal canal.
[2021-07-03] MEDS ORDERED: AMPICILLIN-SULBACTAM 3 GM in SODIUM CHLORIDE 0.9% 100 ML IVPB STA (03:35)
[2021-07-03] MEDS ORDERED: VANCOMYCIN IV PER PHARMACY 1 EACH MISC MISCELLANE PRN (03:35)
[2021-07-03 04:03] LABS: Basophils % (A) 0 %; Eosinophils # (A) 0.2 k/uL (0-0.7); Eosinophils % (A) 2 %; HCT 39.7 % (34.0-46.0); HGB 12.5 gm/dL (11.4-16.0); Lymphocytes # (A) 2.4 k/uL (1.0-4.8); Lymphocytes % (A) 24 %; MCH 28.5 pg (25.0-35.0); MCHC 31.5 g/dL (31.0-37.0); MCV 90.4 fL (80.0-100.0); Mean Platelet Volume 6.9; Monocytes # (A) 0.6 k/uL (0-1.0); Monocytes % (A) 6 %; Neutrophils # (A) 6.5 k/uL (1.3-7.7); Neutrophils % (A) 66 %; Platelet Count 289 k/uL (150-450); RBC 4.39 m/uL (3.80-5.40); WBC 9.9 k/uL (3.8-10.6)
[2021-07-03 04:40] LABS: ALT 12 U/L (4-34); AST 16 U/L (14-36); African American GFR (CKD) >90 (>60 ml/min/1.73 sqM); Albumin 3.5 g/dL (3.5-5.0); Alkaline Phosphatase 79 U/L (38-126); Anion Gap 8 mmol/L; Blood Urea Nitrogen 21 mg/dL (7-17); Calcium 8.9 mg/dL (8.4-10.2); Carbon Dioxide 24 mmol/L (22-30); Chloride 106 mmol/L (98-107); Glucose 92 mg/dL (74-99); Non-African American GFR(CKD) >90 (>60 ml/min/1.73 sqM); Potassium 4.2 mmol/L (3.5-5.1); Sodium 138 mmol/L (137-145); Total Bilirubin 0.6 mg/dL (0.2-1.3); Total Protein 6.3 g/dL (6.3-8.2)
[2021-07-03] MEDS ORDERED: VANCOMYCIN 1,500 MG in SODIUM CHLORIDE 0.9% 250 ML IVPB ONE (05:00)
--- NOTE | 2021-07-03 05:23 | ED ---
Skin/Abscess/FB HPI - General Chief complaint: Skin/Abscess/Foreign Body Stated complaint: Post-op neck swelling Time Seen by Provider: 07/03/21 01:53 Source: patient Mode of arrival: ambulatory - History of Present Illness Initial comments: 51 year-old female patient presents to the emergency department for evaluation of left sided neck swelling and pain. Patient had lymph node removal with Dr. Duncan at [facility] on 06/10/21. States she started to have some pain to the area in early June. She saw the surgeon on 06/26/21 and was diagnosed with ear infection and started on Amoxicillin, Azithromycin, and ear drops. States that she has been taking the medications but is now feeling worse. States that she has pain, swelling, and redness over the left neck where here surgical incision was located. She denies any fever or chills. Denies any throat swelling or difficulty swallowing. Patient denies any recent rash, cough, shortness of breath, chest pain, abdominal pain, nausea, vomiting, diarrhea, constipation, back pain, numbness, tingling, dizziness, weakness, hematuria, dysuria, urinary urgency, urinary frequency, headache, visual changes, or any other complaints. - Related Data Home Medications Medication Instructions Recorded Confirmed Acetaminophen [Tylenol Extra 1,000 mg PO Q4H PRN 02/21/17 03/01/17 Strength] Albuterol Sulfate [Proair Hfa] 1 - 2 puff INHALATION RT-Q6H PRN 02/21/17 03/01/17 Cetirizine HCl [Zyrtec] 10 mg PO DAILY 02/21/17 03/01/17 Fluticasone/Salmeterol [Advair 1 inhalation PO RT-BID 02/21/17 03/01/17 500-50 Diskus] Ibuprofen 800 - 1,000 mg PO TID PRN 02/21/17 03/01/17 Ipratropium-Albuterol Nebulize 1 dose INHALATION RT-QID PRN 02/21/17 03/01/17 [Duoneb 0.5 mg-3 mg/3 ml Soln] diphenhydrAMINE [Benadryl] 25 mg PO DAILY PRN 02/21/17 03/01/17 Previous Rx's Medication Instructions Recorded Cyclobenzaprine [Flexeril] 5 mg PO TID #20 tablet 04/16/18 Ibuprofen [Motrin] 600 mg PO Q8HR PRN #30 tab 07/03/21 Sulfamethoxazole/Trimethoprim 2 each PO BID #40 tablet 07/03/21 [Bactrim DS 800-160 mg] Allergies Allergy/AdvReac Type Severity Reaction Status Date / Time clindamycin AdvReac Nausea & Verified 07/03/21 00:47 Vomiting & Diarrhea morphine AdvReac states Verified 07/03/21 00:47 "b/p went low" Review of Systems ROS Statement: Those systems with pertinent positive or pertinent negative responses have been documented in the HPI. ROS Other: All systems not noted in ROS Statement are negative. Past Medical History Past Medical History: COPD, Eye Disorder Additional Past Medical History / Comment(s): cyst rt ovary,legally blind- genetic born with cataracts,kathie glaucoma,migraines-,heart murmur,varicose veins,constipation,gall stones, ovarian cancer (in remission., lymph node removed from left side of neck 07/09. History of Any Multi-Drug Resistant Organisms: None Reported Past Surgical History: Adenoidectomy, Bladder Surgery, Hysterectomy, Tonsillectomy Additional Past Surgical History / Comment(s): mult eye surg,kathie cataracts,detatched retina rt eye,blebs removed kathie eyes,bladder susp x2 Past Anesthesia/Blood Transfusion Reactions: Previous Problems w/ Anesthesia Additional Past Anesthesia/Blood Transfusion Reaction / Comment(s): states "stopped breathing when in recovery for 2nd bladder susp." Past Psychological History: No Psychological Hx Reported Smoking Status: Never smoker Past Alcohol Use History: None Reported Past Drug Use History: None Reported - Past Family History Mother Family Medical History: Deep Vein Thrombosis (DVT) Father Family Medical History: CVA/TIA General Exam Eye exam: Present: normal appearance, PERRL, EOMI. Absent: scleral icterus, conjunctival injection, periorbital swelling ENT exam: Present: normal exam, normal oropharynx, mucous membranes moist Neck exam: Present: other (Left lateral neck swelling, erythema. Area is fluctuant. Hot to touch.). Absent: tenderness, meningismus, lymphadenopathy Respiratory exam: Present: normal lung sounds bilaterally. Absent: respiratory distress, wheezes, rales, rhonchi, stridor Cardiovascular Exam: Present: regular rate, normal rhythm, normal heart sounds. Absent: systolic murmur, diastolic murmur, rubs, gallop, clicks GI/Abdominal exam: Present: soft, normal bowel sounds. Absent: distended, tenderness, guarding, rebound, rigid Neurological exam: Present: alert, oriented X3, CN II-XII intact Psychiatric exam: Present: normal affect, normal mood Skin exam: Present: warm, dry, intact, normal color. Absent: rash Course Vital Signs 07/03/21 07/03/21 07/03/21 00:39 02:06 03:34 Temperature 98 F Pulse Rate 71 75 66 Respiratory 19 18 18 Rate Blood Pressure 171/90 148/81 145/80 O2 Sat by Pulse 97 98 97 Oximetry 07/03/21 07/03/21 04:52 06:30 Temperature 97.6 F Pulse Rate 70 76 Respiratory 18 18 Rate Blood Pressure 129/71 114/60 O2 Sat by Pulse 96 97 Oximetry Procedures - Incision & Drainage Consent Obtained: verbal consent Indication: abscess Site: neck Size (cm): 4 Anesthetic Used: lidocaine 1% Amount (mLs): 5 I&D Cleaning Method: Betadine Scalpel Used: #11 I&D Drainage Obtained: Pus, Blood Packing: Iodoform Culture Obtained?: Yes Patient Tolerated Procedure: well, no complications Medical Decision Making - Medical Decision Making 51-year-old female patient presented to the emergency department today for evaluation of swelling, redness, pain around the left neck surgical site. Physical examination did reveal a 4 cm area of swelling, tenderness, fluctuance. Labs reviewed and revealed normal white blood cell count and she is afebrile. CT soft tissues neck with contrast was obtained and did reveal 4.5 cm fluid collection to the left neck that could be abscess or hematoma. Patient had a surgical procedure performed by Dr. Duncan at [facility] on 06/10/21. I did attempt to transfer patient to [facility], they refused transfer due to census. I contacted the on-call physician Dr. Mehdi Fuller who spoke to her surgeon. He instructed to perform I&D and place iodoform packing. This procedure was performed. Culture obtained. Patient tolerated well. She will be discharged to follow up at their office on Tuesday or Tuesday. I will send Bactrim to her pharmacy. Return parameters were discussed in detail. She verbalizes understanding and agrees with this plan. Case discussed with my attending Dr. Hilliard. - Lab Data Result diagrams: 07/03/21 03:34 07/03/21 03:34 Lab Results 07/03/21 07/03/21 07/03/21 Range/Units 03:34 03:34 03:34 WBC 9.9 (3.8-10.6) k/uL RBC 4.39 (3.80-5.40) m/uL Hgb 12.5 (11.4-16.0) gm/dL Hct 39.7 (34.0-46.0) % MCV 90.4 (80.0-100.0) fL MCH 28.5 (25.0-35.0) pg MCHC 31.5 (31.0-37.0) g/dL RDW 13.0 (11.5-15.5) % Plt Count 289 (150-450) k/uL MPV 6.9 Neutrophils % 66 % Lymphocytes % 24 % Monocytes % 6 % Eosinophils % 2 % Basophils % 0 % Neutrophils # 6.5 (1.3-7.7) k/uL Lymphocytes # 2.4 (1.0-4.8) k/uL Monocytes # 0.6 (0-1.0) k/uL Eosinophils # 0.2 (0-0.7) k/uL Basophils # 0.0 (0-0.2) k/uL Sodium 138 (137-145) mmol/L Potassium 4.2 (3.5-5.1) mmol/L Chloride 106 (98-107) mmol/L Carbon Dioxide 24 (22-30) mmol/L Anion Gap 8 mmol/L BUN 21 H (7-17) mg/dL Creatinine 0.59 (0.52-1.04) mg/dL Est GFR (CKD-EPI)AfAm >90 (>60 ml/min/1.73 sqM) Est GFR (CKD-EPI)NonAf >90 (>60 ml/min/1.73 sqM) Glucose 92 (74-99) mg/dL Plasma Lactic Acid Boyd 0.8 (0.7-2.0) mmol/L Calcium 8.9 (8.4-10.2) mg/dL Total Bilirubin 0.6 (0.2-1.3) mg/dL AST 16 (14-36) U/L ALT 12 (4-34) U/L Alkaline Phosphatase 79 (38-126) U/L Total Protein 6.3 (6.3-8.2) g/dL Albumin 3.5 (3.5-5.0) g/dL - Radiology Data Radiology results: report reviewed, image reviewed CT soft tissue neck with contrast is obtained. Report was reviewed in its entirety. Impression by Dr. Rodriguez shows irregular fluid collection in the subcutaneous tissues extending deep to the anterior aspect of the sternocleidomastoid muscle and has density at 34. This could be a hematoma. Abscess is not excluded. C4 to 5 bony spinal stenosis. Impression by the spinal canal. Disposition Clinical Impression: Surgical site infection, Neck abscess Disposition: HOME SELF-CARE Condition: Good Instructions (If sedation given, give patient instructions): Abscess Incision and Drainage (ED), Surgical Site Infections (ED) Additional Instructions: Warm compresses 4-5 times per day for about 10-20 minutes. Complete antibiotic prescription and full. Follow-up with your ENT specialist on Tuesday or Tuesday. Return to the emergency department immediately for any new, worsening, or concerning symptoms. Prescriptions: Sulfamethoxazole/Trimethoprim [Bactrim DS 800-160 mg] 2 each PO BID #40 tablet Ibuprofen [Motrin] 600 mg PO Q8HR PRN #30 tab PRN Reason: Pain Is patient prescribed a controlled substance at d/c from ED?: No Referrals: David Augustine MD [Primary Care Provider] - 1-2 days Time of Disposition: 08:24
[2021-07-03 06:59] VITALS: TEMP 97.6
[2021-07-03] MEDS ORDERED: LIDOCAINE 1% INJ 10MG/ML (20 ML MDV) SQ ONE (07:52)
[2021-07-03] MEDS ORDERED: KETOROLAC 15 MG/ML 1 ML VIAL IVP STA (08:21)
[2021-07-03 08:49] VITALS: BP 137/80; PULSE 72; RESP 16
[2021-07-03] MEDS ORDERED: VANCOMYCIN 1,750 MG in SODIUM CHLORIDE 0.9% 500 ML 500 ML IVPB SCH (17:00)
== END 2021-07-03 08:49 | disposition home or self-care (01) ==
LOC: EC 00:03
DX: L02.11 Cutaneous abscess of neck (principal); T81.49XA Infection following a procedure, other surgical site, initial encounter; J44.9 Chronic obstructive pulmonary disease, unspecified; Z88.1 Allergy status to other antibiotic agents; Z88.5 Allergy status to narcotic agent; Z90.89 Acquired absence of other organs; Z90.710 Acquired absence of both cervix and uterus; Y83.9 Surgical procedure, unspecified as the cause of abnormal reaction of the patient, or of later complication, without mention of misadventure at the time of the procedure
CPT/HCPCS: 99284; 96365; 96366; 96367; 96375 ×3; 10060; 36415; 80053; 83605; 85025; 87040; 87070; 87205; 70491; J3370; J2405; J2001; J0295; J1885; J1170; Q9967; 87077; 87186

== ENCOUNTER 2021-11-15 05:25 | Inpatient (IN) | payer BC, MEDICARE ==
[2021-11-15] MEDS ORDERED: MORPHINE SULFATE 4 MG/ML SYRINGE IV STA (05:46)
[2021-11-15] MEDS ORDERED: SODIUM CHLORIDE 0.9% 1,000 ML IV STA (05:46)
[2021-11-15] MEDS ORDERED: ONDANSETRON 4 MG/2 ML VIAL IVP STA (05:46)
--- NOTE | 2021-11-15 05:47 | ED ---
Abdominal Pain HPI - General Chief Complaint: Abdominal Pain Stated Complaint: Abd Pain Time Seen by Provider: 11/15/21 05:46 Source: patient, RN notes reviewed, old records reviewed Mode of arrival: ambulatory Limitations: no limitations - History of Present Illness Initial Comments: This is a 51-year-old female to the emergency department today. She has had persistent vomiting and presents today for evaluation of vomiting. Umbilical hernia having difficulty currently reducing it. Patient's nausea vomiting is persistent abdominal pain is severe. Ration does see Dr. Dhillon is scheduled for upcoming surgery especially if symptoms worsen. She otherwise has no fevers no other complaints MD Complaint: abdominal pain, other (Significant nausea and vomiting) -: hour(s) Location: diffuse, periumbilical Radiation: epigastric, suprapubic Migration to: periumbilical Severity: severe Severity scale (1-10): 10 Quality: cramping, stabbing Consistency: constant Improves With: nothing Worsens With: nothing Context: other (none) Associated Symptoms: nausea, vomiting Treatments Prior to Arrival: other (none) - Related Data Home Medications Medication Instructions Recorded Confirmed Acetaminophen [Tylenol Extra 1,000 mg PO Q4H PRN 02/21/17 11/15/21 Strength] Albuterol Sulfate [Proair Hfa] 2 puff INHALATION RT-Q4H PRN 02/21/17 11/15/21 Ipratropium-Albuterol Nebulize 3 ml INHALATION RT-QID PRN 02/21/17 11/15/21 [Duoneb 0.5 mg-3 mg/3 ml Soln] Fluticasone Propion/Salmeterol 1 puff INHALATION RT-BID 11/15/21 11/15/21 [Wixela 500-50 Inhub] Ibuprofen [Motrin Ib] 600 mg PO Q8H PRN 11/15/21 11/15/21 Ipratropium [place] [Atrovent Hfa] 2 puff INHALATION RT-QID 11/15/21 11/15/21 Levothyroxine Sodium [Synthroid] 88 mcg PO DAILY 11/15/21 11/15/21 Allergies Allergy/AdvReac Type Severity Reaction Status Date / Time clindamycin AdvReac Nausea & Verified 11/15/21 12:31 Vomiting & Diarrhea morphine AdvReac states Verified 02/27/22 12:31 "b/p went low" Review of Systems ROS Statement: Those systems with pertinent positive or pertinent negative responses have been documented in the HPI. ROS Other: All systems not noted in ROS Statement are negative. Past Medical History Past Medical History: COPD, Eye Disorder Additional Past Medical History / Comment(s): cyst rt ovary,legally blind- genetic born with cataracts,kathie glaucoma,migraines-,heart murmur,varicose veins,constipation,gall stones, ovarian cancer (in remission., lymph node removed from left side of neck 07/09. History of Any Multi-Drug Resistant Organisms: None Reported Past Surgical History: Adenoidectomy, Bladder Surgery, Hysterectomy, Tonsillectomy Additional Past Surgical History / Comment(s): mult eye surg,kathie cataracts,detatched retina rt eye,blebs removed kathie eyes,bladder susp x2 Past Anesthesia/Blood Transfusion Reactions: Previous Problems w/ Anesthesia Additional Past Anesthesia/Blood Transfusion Reaction / Comment(s): states "stopped breathing when in recovery for 2nd bladder susp." Past Psychological History: No Psychological Hx Reported Smoking Status: Never smoker Past Alcohol Use History: None Reported Past Drug Use History: None Reported - Past Family History Mother Family Medical History: Deep Vein Thrombosis (DVT) Father Family Medical History: CVA/TIA General Exam Limitations: no limitations General appearance: alert, in no apparent distress, anxious Head exam: Present: atraumatic, normocephalic, normal inspection Eye exam: Present: normal appearance, PERRL, EOMI. Absent: scleral icterus, conjunctival injection, periorbital swelling ENT exam: Present: normal exam, mucous membranes moist Neck exam: Present: normal inspection. Absent: tenderness, meningismus, ly mphadenopathy Respiratory exam: Present: normal lung sounds bilaterally. Absent: respiratory distress, wheezes, rales, rhonchi, stridor Cardiovascular Exam: Present: regular rate, normal rhythm, normal heart sounds. Absent: systolic murmur, diastolic murmur, rubs, gallop, clicks GI/Abdominal exam: Present: soft, tenderness, guarding, normal bowel sounds. Absent: distended, rebound, rigid Extremities exam: Present: normal inspection, full ROM, normal capillary refill. Absent: tenderness, pedal edema, joint swelling, calf tenderness Back exam: Present: normal inspection Neurological exam: Present: alert, oriented X3, CN II-XII intact Psychiatric exam: Present: normal affect, normal mood Skin exam: Present: warm, dry, intact, normal color. Absent: rash Course Vital Signs 11/15/21 11/15/21 05:38 09:44 Temperature 97.9 F 98.0 F Pulse Rate 78 Pulse Rate [ 94 Right] Respiratory 18 18 Rate Blood Pressure 164/99 Blood Pressure 137/84 [Left Arm] O2 Sat by Pulse 96 95 Oximetry - Reevaluation(s) Reevaluation #1: 11/15/21 06:23 Medical record is reviewed Reevaluation #2: 11/15/21 Patient symptoms are improved here in the ER Patient informed results questions answered - Consultations Consultation #1: Spoke with Dr. Grady who agrees to admit patient Medical Decision Making - Medical Decision Making 51 female for intractable nausea vomiting and severe abdominal pain. Patient does appear to have an incarcerated abdominal hernia with small bowel obstruction patient be admitted for surgical evaluation management - Lab Data Result diagrams: 11/15/21 06:56 11/15/21 06:56 Lab Results 11/15/21 11/15/21 11/15/21 Range/Units 06:56 06:56 06:56 WBC 16.9 H (3.8-10.6) k/uL RBC 4.77 (3.80-5.40) m/uL Hgb 14.1 (11.4-16.0) gm/dL Hct 43.5 (34.0-46.0) % MCV 91.1 (80.0-100.0) fL MCH 29.5 (25.0-35.0) pg MCHC 32.3 (31.0-37.0) g/dL RDW 13.5 (11.5-15.5) % Plt Count 269 (150-450) k/uL MPV 7.6 Neutrophils % 91 % Lymphocytes % 3 % Monocytes % 5 % Eosinophils % 1 % Basophils % 0 % Neutrophils # 15.3 H (1.3-7.7) k/uL Lymphocytes # 0.4 L (1.0-4.8) k/uL Monocytes # 0.8 (0-1.0) k/uL Eosinophils # 0.1 (0-0.7) k/uL Basophils # 0.0 (0-0.2) k/uL Sodium 140 (137-145) mmol/L Potassium 4.2 (3.5-5.1) mmol/L Chloride 107 (98-107) mmol/L Carbon Dioxide 26 (22-30) mmol/L Anion Gap 7 mmol/L BUN 19 H (7-17) mg/dL Creatinine 0.58 (0.52-1.04) mg/dL Est GFR (CKD-EPI)AfAm >90 (>60 ml/min/1.73 sqM) Est GFR (CKD-EPI)NonAf >90 (>60 ml/min/1.73 sqM) Glucose 141 H (74-99) mg/dL Plasma Lactic Acid Boyd 1.2 (0.7-2.0) mmol/L Calcium 9.3 (8.4-10.2) mg/dL Total Bilirubin 1.4 H (0.2-1.3) mg/dL AST 25 (14-36) U/L ALT 21 (4-34) U/L Alkaline Phosphatase 84 (38-126) U/L Total Protein 7.4 (6.3-8.2) g/dL Albumin 4.2 (3.5-5.0) g/dL Amylase 44 (30-110) U/L Lipase 42 (23-300) U/L - Radiology Data Radiology results: report reviewed (CT abdomen and pelvis is positive for small bowel obstruction related to abdominal hernia), image reviewed Disposition Clinical Impression: Abdominal pain, Nausea and vomiting, SBO (small bowel obstruction), Abdominal hernia Disposition: ADMITTED IP TO THIS [facility] Condition: Fair Is patient prescribed a controlled substance at d/c from ED?: No
[2021-11-15] MEDS ORDERED: LORazepam 2 MG/ML INJ IV PRN (06:54)
[2021-11-15] MEDS ORDERED: ONDANSETRON 4 MG/2 ML VIAL IVP PRN (06:54)
[2021-11-15] MEDS ORDERED: MORPHINE SULFATE 4 MG/ML SYRINGE IV PRN (06:54)
[2021-11-15] MEDS ORDERED: NALOXONE 0.4 MG/ML 1 ML VIAL IV PRN (06:54)
[2021-11-15 07:30] LABS: Basophils % (A) 0 %; Eosinophils # (A) 0.1 k/uL (0-0.7); Eosinophils % (A) 1 %; HCT 43.5 % (34.0-46.0); HGB 14.1 gm/dL (11.4-16.0); Lymphocytes # (A) 0.4 k/uL (1.0-4.8); Lymphocytes % (A) 3 %; MCH 29.5 pg (25.0-35.0); MCHC 32.3 g/dL (31.0-37.0); MCV 91.1 fL (80.0-100.0); Mean Platelet Volume 7.6; Monocytes # (A) 0.8 k/uL (0-1.0); Monocytes % (A) 5 %; Neutrophils # (A) 15.3 k/uL (1.3-7.7); Neutrophils % (A) 91 %; Platelet Count 269 k/uL (150-450); RBC 4.77 m/uL (3.80-5.40); RDW 13.5 % (11.5-15.5); WBC 16.9 k/uL (3.8-10.6)
[2021-11-15 07:40] LABS: ALT 21 U/L (4-34); AST 25 U/L (14-36); African American GFR (CKD) >90 (>60 ml/min/1.73 sqM); Albumin 4.2 g/dL (3.5-5.0); Alkaline Phosphatase 84 U/L (38-126); Amylase 44 U/L (30-110); Anion Gap 7 mmol/L; Blood Urea Nitrogen 19 mg/dL (7-17); Calcium 9.3 mg/dL (8.4-10.2); Carbon Dioxide 26 mmol/L (22-30); Chloride 107 mmol/L (98-107); Glucose 141 mg/dL (74-99); Lipase 42 U/L (23-300); Non-African American GFR(CKD) >90 (>60 ml/min/1.73 sqM); Potassium 4.2 mmol/L (3.5-5.1); Sodium 140 mmol/L (137-145); Total Bilirubin 1.4 mg/dL (0.2-1.3); Total Protein 7.4 g/dL (6.3-8.2)
[2021-11-15] MEDS: PANTOPRAZOLE 40 MG/10 ML VIAL IV SCH ×2 (08:25→09:45)
--- NOTE | 2021-11-15 09:42 | CT ---
EXAMINATION TYPE: CT abdomen pelvis w con DATE OF EXAM: 11/15/2021 COMPARISON: CT 04/16/2018 HISTORY: Abdominal pain CT DLP: 2016.6 mGycm Automated exposure control for dose reduction was used. TECHNIQUE: Helical acquisition of images from the lung bases through the pelvis have been completed. CONTRAST: Performed without Oral Contrast and with IV Contrast, patient injected with 100 mL of Isovue 300. FINDINGS: LUNG BASES: No significant abnormality is appreciated. AORTA: No significant abnormality is appreciated. LIVER/GB: Multiple stones are present within the gallbladder. Liver is enlarged. Liver shows low atte nuation possibly due to hepatic steatosis. PANCREAS: No significant abnormality is seen. SPLEEN: No significant abnormality is seen. ADRENALS: No significant abnormality is seen. KIDNEYS: No significant abnormality is seen. REPRODUCTIVE ORGANS: Not seen BOWEL: There is small bowel extending into patient's anterior abdominal wall hernia, fluid-filled lo ops of bowel are present, some loops of bowel show distended appearance, with some extension to the s kin surface. Hernia is thought to show cephalad to caudal dimension of approximately 2.5 cm at the mo re cephalad extent by approximately 6 cm in transverse dimension. There are some additional bowel loo ps more inferiorly however, axial image 63 which show a more decompressed appearance but fluid-filled and protrude through the abdominal wall, question as to whether this is the same defect or a more in ferior defect within the abdominal wall. More peripheral small bowel loops show a decompressed appear ance. Proximal bowel loops also show some decompression and there are loops with a distended appearan ce. There are bowel loops with thickened wall. Postop change to the anterior abdominal wall suspected at this level. Surgical clip may be present within the abdomen posteriorly FREE AIR: No Free Air vi sible. ASCITES: None visible. PELVIC ADENOPATHY: None visualized. RETROPERITONEAL ADENOPATHY: No Retroperitoneal Adenopathy visible. URINARY BLADDER: No significant abnormality is seen. OSSEOUS STRUCTURES: Degenerative disc change present at the level of the lumbosacral junction.. IMPRESSION: THERE IS AN ANTERIOR ABDOMINAL WALL HERNIA WITH BOWEL LOOPS EXTENDING INTO THE SUBCUTANEOUS FAT. DIFF ICULT TO EXCLUDE AT LEAST PARTIAL SMALL BOWEL OBSTRUCTION. Correlate for incarceration, strangulation . Report relayed to the referring clinician telephonically at the time of interpretation
[2021-11-15] MEDS: SODIUM CHLORIDE 0.9% 1,000 ML IV SCH ×2 (09:45→17:40)
--- NOTE | 2021-11-15 11:10 | P.GSHP ---
History of Present Illness H&P Date: 11/15/21 Chief Complaint: Incarcerated incisional hernia 51-year-old female came to the hospital yesterday with complaints of a hernia near her belly button. Patient says she has had trouble pushing it back in lately. Patient has an appointment to see me regarding this in December. She was seen previously in 2018 for a hernia here that was smaller in nature. Was not causing much symptoms at that time. Patient had episodes of bilious emesis. CAT scan performed showing partial bowel obstruction at the site of hernia. Patient with history of previous attempted laparoscopic oophorectomy turned opened through a Pfannenstiel approach. Patient later had midline laparotomy incision for radical hysterectomy for ovarian cancer. No evidence of recurrence. Patient feels better this morning. White blood cell count was elevated yesterday on arrival. No further vomiting since early this morning. Patient is afebrile. - Review of Systems Comment: The patient denies any acute changes in vision or hearing, no dysphagia or odynophagia, no chest pain or shortness of breath, no dysuria or hematuria, no headache, no runny nose, no rectal bleeding or melena, no unexplained weight loss Past Medical History Past Medical History: COPD, Eye Disorder Additional Past Medical History / Comment(s): cyst rt ovary,legally blind- genetic born with cataracts,kathie glaucoma,migraines-,heart murmur,varicose veins,constipation,gall stones, ovarian cancer (in remission., lymph node rem [place]o from left side of neck 07/09. History of Any Multi-Drug Resistant Organisms: None Reported Past Surgical History: Adenoidectomy, Bladder Surgery, Hysterectomy, Tonsillectomy Additional Past Surgical History / Comment(s): mult eye surg,kathie cataracts,detatched retina rt eye,blebs removed kathie eyes,bladder susp x2 Past Anesthesia/Blood Transfusion Reactions: Previous Problems w/ Anesthesia Additional Past Anesthesia/Blood Transfusion Reaction / Comment(s): states "stopped breathing when in recovery for 2nd bladder susp." Past Psychological History: No Psychological Hx Reported Smoking Status: Never smoker Past Alcohol Use History: None Reported Additional Past Alcohol Use History / Comment(s): started smoking 1980s,<1ppd,hasn't had a cigarette since 02-16-17. Past Drug Use History: None Reported - Past Family History Mother Family Medical History: Deep Vein Thrombosis (DVT) Father Family Medical History: CVA/TIA Medications and Allergies Home Medications Medication Instructions Recorded Confirmed Type Acetaminophen [Tylenol Extra 1,000 mg PO Q4H PRN 02/21/17 11/15/21 History Strength] Albuterol Sulfate [Proair Hfa] 1 - 2 puff INHALATION RT-Q6H PRN 02/21/17 11/15/21 History Fluticasone/Salmeterol [Advair 1 inhalation PO RT-BID 02/21/17 11/15/21 History 500-50 Diskus] Ipratropium-Albuterol Nebulize 1 dose INHALATION RT-QID PRN 02/21/17 11/15/21 History [Duoneb 0.5 mg-3 mg/3 ml Soln] Ipratropium [place] [Atrovent Hfa] 2 puff INHALATION PC-BID 11/15/21 11/15/21 History Allergies Allergy/AdvReac Type Severity Reaction Status Date / Time clindamycin AdvReac Nausea & Verified 11/15/21 05:40 Vomiting & Diarrhea morphine AdvReac states Verified 11/15/21 05:40 "b/p went low" Surgical - Exam Vital Signs Temp Pulse Resp BP Pulse Ox 97.9 F 78 18 164/99 96 11/15/21 05:38 11/15/21 05:38 11/15/21 05:38 11/15/21 05:38 11/15/21 05:38 Physical exam: General: Well-developed, well-nourished HEENT: Normocephalic, sclerae nonicteric Abdomen: Nontender, nondistended, midline scar noted, incisional hernia present able to be reduced with mild difficulty Extremities: No edema Neuro: Alert and oriented Results - Labs 11/15/21 06:56 11/15/21 06:56 Abnormal Lab Results - Last 24 Hours (Table) 11/15/21 11/15/21 Range/Units 06:56 06:56 WBC 16.9 H (3.8-10.6) k/uL Neutrophils # 15.3 H (1.3-7.7) k/uL Lymphocytes # 0.4 L (1.0-4.8) k/uL BUN 19 H (7-17) mg/dL Glucose 141 H (74-99) mg/dL Total Bilirubin 1.4 H (0.2-1.3) mg/dL Diabetes panel 11/15/21 Range/Units 06:56 Sodium 140 (137-145) mmol/L Potassium 4.2 (3.5-5.1) mmol/L Chloride 107 (98-107) mmol/L Carbon Dioxide 26 (22-30) mmol/L BUN 19 H (7-17) mg/dL Creatinine 0.58 (0.52-1.04) mg/dL Glucose 141 H (74-99) mg/dL Calcium 9.3 (8.4-10.2) mg/dL AST 25 (14-36) U/L ALT 21 (4-34) U/L Alkaline Phosphatase 84 (38-126) U/L Total Protein 7.4 (6.3-8.2) g/dL Albumin 4.2 (3.5-5.0) g/dL Calcium panel 11/15/21 Range/Units 06:56 Calcium 9.3 (8.4-10.2) mg/dL Albumin 4.2 (3.5-5.0) g/dL Pituitary panel 11/15/21 Range/Units 06:56 Sodium 140 (137-145) mmol/L Potassium 4.2 (3.5-5.1) mmol/L Chloride 107 (98-107) mmol/L Carbon Dioxide 26 (22-30) mmol/L BUN 19 H (7-17) mg/dL Creatinine 0.58 (0.52-1.04) mg/dL Glucose 141 H (74-99) mg/dL Calcium 9.3 (8.4-10.2) mg/dL Adrenal panel 11/15/21 Range/Units 06:56 Sodium 140 (137-145) mmol/L Potassium 4.2 (3.5-5.1) mmol/L Chloride 107 (98-107) mmol/L Carbon Dioxide 26 (22-30) mmol/L BUN 19 H (7-17) mg/dL Creatinine 0.58 (0.52-1.04) mg/dL Glucose 141 H (74-99) mg/dL Calcium 9.3 (8.4-10.2) mg/dL Total Bilirubin 1.4 H (0.2-1.3) mg/dL AST 25 (14-36) U/L ALT 21 (4-34) U/L Alkaline Phosphatase 84 (38-126) U/L Total Protein 7.4 (6.3-8.2) g/dL Albumin 4.2 (3.5-5.0) g/dL Assessment and Plan (1) Incarcerated incisional hernia Narrative/Plan: 51-year-old female presents to the hospital with incarcerated incisional hernia. This appears to be causing a partial obstruction. I was able to reduce this hernia. Options discussed. We'll schedule for operative repair tomorrow with possible mesh. Risks of bleeding, infection, recurrence, bladder and bowel injury, numbness, nerve injury were discussed with the patient. The patient understands and wishes to proceed. Current Visit: Yes Status: Acute Code(s): K43.0 - INCISIONAL HERNIA WITH OBSTRUCTION, WITHOUT GANGRENE SNOMED Code(s): 625846122
[2021-11-15 12:03] LABS: Appearance,Urine Clear (Clear); Bacteria,Urine Rare /hpf; Bilirubin,Urine Negative (Negative); Blood,Urine Negative (Negative); Color,Urine Yellow; Glucose,Urine (UA) Negative (Negative); Ketones,Urine Negative (Negative); Leukocyte Esterase,Urine Small (Negative); Mucus,Urine Rare /hpf; Nitrite,Urine Negative (Negative); Protein,Urine Negative (Negative); RBC,Urine 2 /hpf (0-5); Specific Gravity,Urine >1.050 (1.001-1.035); Squamous Epithelial Cell,Urine 1 /hpf (0-4); Urobilinogen,Urine <2.0 mg/dL (<2.0); WBC,Urine 1 /hpf (0-5)
[2021-11-15] MEDS: KETOROLAC 30 MG/ML 1 ML VIAL IVP SCH ×2 (12:42→17:38)
--- NOTE | 2021-11-15 15:12 | P.CONS ---
History of Present Illness - Reason for Consult Consult date: 11/15/21 Medical management - Chief Complaint Abdominal pain - History of Present Illness Pt. is a 51-year-old female with a known history of COPD, history of ovarian cancer status post total hysterectomy, legally blindborn with cataract, bladder surgery presents to ER with complaints of abdominal pain. Patient is on follow- up with general surgery and is planning for umbilical hernia repair as an outpa tient. Patient has been having abdominal pain and persistent vomiting since yesterday and presents to ER. Otherwise denies any complaints of chest pain or shortness of breath. No headache or dizziness or lightheadedness. No fever no chills. No cough or sputum production. CT of the abdomen pelvis showed there is an anterior abdominal wall hernia with bowel loops extending into the subcutaneous fat. Difficulty exclude at least partial small bowel obstruction. Correlate for incarceration, strangulation. Hernia was reduced in the ER and was admitted to hospital. Laboratory showed WBC 16.9 hemoglobin 14.1 and platelets 269 Sodium 140 potassium 4.2 chloride 107 BUN 19 and creatinine 0.58 and total bilirubin level is 1.4 Urinalysis is negative for infection. Past Medical History Past Medical History: COPD, Eye Disorder Additional Past Medical History / Comment(s): cyst rt ovary,legally blind- genetic born with cataracts,kathie glaucoma,migraines-,heart murmur,varicose veins,constipation,gall stones, ovarian cancer (in remission., lymph node removed from left side of neck 07/09. History of Any Multi-Drug Resistant Organisms: None Reported Past Surgical History: Adenoidectomy, Bladder Surgery, Hysterectomy, Tonsillectomy Additional Past Surgical History / Comment(s): mult eye surg,kathie cataracts,detatched retina rt eye,blebs removed kathie eyes,bladder susp x2 Past Anesthesia/Blood Transfusion Reactions: Previous Problems w/ Anesthesia Additional Past Anesthesia/Blood Transfusion Reaction / Comm: states "stopped breathing when in recovery for 2nd bladder susp." Past Psychological History: No Psychological Hx Reported Smoking Status: Never smoker Past Alcohol Use History: None Reported Additional Past Alcohol Use History / Comment(s): started smoking 1980s,<1ppd,hasn't had a cigarette since 02-16-17. Past Drug Use History: None Reported - Past Family History Mother Family Medical History: Deep Vein Thrombosis (DVT) Father Family Medical History: CVA/TIA Medications and Allergies Home Medications Medication Instructions Recorded Confirmed Type Acetaminophen [Tylenol Extra 1,000 mg PO Q4H PRN 02/21/17 11/15/21 History Strength] Albuterol Sulfate [Proair Hfa] 2 puff INHALATION RT-Q4H PRN 02/21/17 11/15/21 History Ipratropium-Albuterol Nebulize 3 ml INHALATION RT-QID PRN 02/21/17 11/15/21 History [Duoneb 0.5 mg-3 mg/3 ml Soln] Fluticasone [place]ion/Salmeterol 1 puff INHALATION RT-BID 11/15/21 11/15/21 History [[place] 500-50 Inhub] Ibuprofen [Motrin Ib] 600 mg PO Q8H PRN 11/15/21 11/15/21 History Ipratropium [place] [Atrovent Hfa] 2 puff INHALATION RT-QID 11/15/21 11/15/21 History Levothyroxine Sodium [Synthroid] 88 mcg PO DAILY 11/15/21 11/15/21 History Allergies Allergy/AdvReac Type Severity Reaction Status Date / Time clindamycin AdvReac Nausea & Verified 11/15/21 12:31 Vomiting & Diarrhea morphine AdvReac states Verified 11/15/21 12:31 "b/p went low" Physical Exam Vitals: Vital Signs Temp Pulse Pulse Resp BP BP Pulse Ox 11/15/21 11:31 98.0 F 74 18 119/77 95 11/15/21 09:44 98.0 F 94 18 137/84 95 11/15/21 05:38 97.9 F 78 18 164/99 96 Intake and Output 11/15/21 11/15/21 11/15/21 06:59 14:59 22:59 Other: Weight 108.862 kg 108.862 kg Results CBC & Chem 7: 11/15/21 06:56 11/15/21 06:56 Labs: Abnormal Lab Results - Last 24 Hours (Table) 11/15/21 11/15/21 11/15/21 Range/Units 06:56 06:56 11:44 WBC 16.9 H (3.8-10.6) k/uL Neutrophils # 15.3 H (1.3-7.7) k/uL Lymphocytes # 0.4 L (1.0-4.8) k/uL BUN 19 H (7-17) mg/dL Glucose 141 H (74-99) mg/dL Total Bilirubin 1.4 H (0.2-1.3) mg/dL Ur Specific [place] >1.050 H (1.001-1.035) Ur Leukocyte Esterase Small H (Negative) Urine Bacteria Rare H (None) /hpf Urine Mucus Rare H (None) /hpf Assessment and Plan Assessment: Anterior abdominal wall hernia with bowel loops extending into subcutaneous fat. History of ovarian cancer status post surgery. Currently in remission. 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 Leukocytosis DVT prophylaxis. Plan: Patient will be current IV hydration and pain management. GI and DVT prophyl axis. General surgery is planning for hernia repair in the next 24 hours. Follow-up CBC tomorrow. Further recommendations based on the clinical course. Thank you for your consult. Time with Patient: Greater than 30
[2021-11-16] MEDS: KETOROLAC 30 MG/ML 1 ML VIAL IVP SCH ×4 (00:26→17:42)
[2021-11-16] MEDS: SODIUM CHLORIDE 0.9% 1,000 ML IV SCH ×3 (01:00→17:43)
[2021-11-16 06:55] LABS: Basophils % (A) 0 %; Eosinophils # (A) 0.3 k/uL (0-0.7); Eosinophils % (A) 4 %; HCT 37.2 % (34.0-46.0); HGB 12.1 gm/dL (11.4-16.0); Lymphocytes # (A) 1.4 k/uL (1.0-4.8); Lymphocytes % (A) 20 %; MCH 30.4 pg (25.0-35.0); MCHC 32.6 g/dL (31.0-37.0); MCV 93.4 fL (80.0-100.0); Mean Platelet Volume 7.5; Monocytes # (A) 0.5 k/uL (0-1.0); Monocytes % (A) 7 %; Neutrophils # (A) 4.7 k/uL (1.3-7.7); Neutrophils % (A) 66 %; Platelet Count 206 k/uL (150-450); RBC 3.99 m/uL (3.80-5.40); RDW 13.6 % (11.5-15.5)
[2021-11-16 07:04] LABS: ALT 15 U/L (4-34); AST 20 U/L (14-36); African American GFR (CKD) >90 (>60 ml/min/1.73 sqM); Albumin 2.8 g/dL (3.5-5.0); Albumin/Globulin Ratio 1.1; Alkaline Phosphatase 56 U/L (38-126); Anion Gap 4 mmol/L; Blood Urea Nitrogen 15 mg/dL (7-17); Calcium 7.7 mg/dL (8.4-10.2); Carbon Dioxide 24 mmol/L (22-30); Chloride 111 mmol/L (98-107); Globulin 2.6 g/dL; Glucose 90 mg/dL (74-99); Magnesium 1.8 mg/dL (1.6-2.3); Non-African American GFR(CKD) >90 (>60 ml/min/1.73 sqM); Phosphorus 3.8 mg/dL (2.5-4.5); Potassium 3.7 mmol/L (3.5-5.1); Sodium 139 mmol/L (137-145); Total Protein 5.4 g/dL (6.3-8.2)
[2021-11-16] MEDS: PANTOPRAZOLE 40 MG/10 ML VIAL IV SCH (09:01)
[2021-11-16] MEDS ORDERED: IPRATROPIUM-ALBUTEROL 3 ML NEB INHALATION PRN (12:27)
[2021-11-16] MEDS ORDERED: ALBUTEROL NEBULIZED 2.5 MG/3 ML INHALATION PRN (12:27)
[2021-11-16] MEDS ORDERED: HEPARIN SODIUM,PORCINE/PF 5,000 UNIT/0.5 ML SYRINGE SQ ONE (13:24)
[2021-11-16] MEDS ORDERED: HEPARIN SODIUM,PORCINE 5,000 UNIT/ML 1 ML VIAL SQ ONE (13:28)
[2021-11-16] MEDS ORDERED: IV FLUID CONTINUATION 1,000 ML IV ONE (13:28)
[2021-11-16] MEDS ORDERED: ONDANSETRON 4 MG/2 ML VIAL IVP ONE (13:30)
[2021-11-16] MEDS ORDERED: PROPOFOL 10 MG/ML 20 ML VIAL IV ONE (13:31)
[2021-11-16] MEDS ORDERED: ROCURONIUM 10 MG/ML (5 ML VIAL) IV ONE (13:31)
[2021-11-16] MEDS ORDERED: HYDROmorphone (PF) 1 MG/ML ONE (13:31)
[2021-11-16] MEDS ORDERED: LIDOCAINE 1% INJ 10MG/ML (20 ML MDV) ONE (13:31)
[2021-11-16] MEDS ORDERED: fentaNYL (PF) 50 MCG/ML 2 ML AMP ONE (13:31)
[2021-11-16] MEDS ORDERED: SUGAMMADEX SODIUM 500 MG/5 ML SDV IV ONE (13:31)
[2021-11-16] MEDS ORDERED: SUCCINYLCHOLINE CHLORIDE 100 MG/5 ML SYR IV ONE (13:31)
[2021-11-16] MEDS ORDERED: MIDAZOLAM 2 MG/2 ML VIAL ONE (13:31)
[2021-11-16] MEDS ORDERED: LACTATED RINGERS 1,000 ML IV ONE (14:53)
--- NOTE | 2021-11-16 15:58 | P.OP ---
Date of Procedure: 11/16/21 Procedure(s) Performed: PREOPERATIVE DIAGNOSIS: Incisional hernia POSTOPERATIVE DIAGNOSIS: Incarcerated incisional hernia with multiple defects, significant abdominal adhesions, small bowel stricture PROCEDURE: Exploratory laparotomy, repair incisional hernia, small bowel resection, extensive lysis of adhesions SURGEON: Miguel A EBL: 25 mL ANESTHESIA: Gen. COMPLICATIONS: None OPERATIVE PROCEDURE: Patient placed in the operative table. She was then placed under general anesthesia. The previous incision was re-incised extending from the supra umbilical to the infraumbilical location. Later this was lengthened inferiorly. The patient was found have 2 large defects at about the level of the umbilicus. Each measured about 3 cm x 3 cm in diameter. One of these 2 hernias had a portion of bowel that was incarcerated within that area. The bowel was viable however there was evidence of chronic stricture formation. Patient had 2 smaller defects along the midline inferiorly each measuring about 1 cm x 1 cm. These were all incorporated into one fascial opening. The patient's small bowel was densely adherent to the abdominal wall both at the hernia sites and circumferentially around this as well. There were a few areas of the small bowel serosa and mesentery that were indurated and I was slightly concerned about the possibility of recurrent ovarian cancer. A total of 2 portions of bowel were excised because of the matted adhesions, stricture formation, and significant inflammatory change from the adhesions themselves. Length of bowel removed approximately 2-3 feet. The bowel was divided using the linear 75 stapler. Mesentery was divided using the LigaSure device. Small area of bleeding along the mesentery controlled using a [id number] 2-0 Vicryl stitch. A [id number]-[id number] anastomosis took place between the proximal and distal portions of the small bowel by removing the antimesenteric staple line. The linear 75 stapler was fired along the antimesenteric border. The remaining defect was closed transversely using a TX 60 device. The abdomen was irrigated with saline. No bleeding was seen. No further adhesions to the abdominal wall were encountered inferiorly. No further defects were palpable inferiorly or superiorly. Because of the bowel resection I chose not to place a mesh at this time. The fascia was reapproximated in a vertical fashion using interrupted 0 Ethibond sutures in a vest over pants horizontal mattress fashion. The folding edge was tacked down using interrupted 0 Ethibond sutures as well. A drain was placed anterior to the fascial closure exiting from the right lateral lower quadrant. This is sutured to the skin using a Ethibond stitch. The saphenous tissues were closed using 201 3-0 Vicryl sutures. The skin was closed using lewis. Sterile dressings were then applied. DISPOSITION: Stable to recovery room
[2021-11-16] MEDS: HEPARIN SODIUM,PORCINE/PF 5,000 UNIT/0.5 ML SYRINGE SQ SCH (16:15)
[2021-11-16] MEDS ORDERED: HYDROmorphone 0.5 MG/0.5 ML SYRINGE IVP ONE (16:23)
[2021-11-16] MEDS: SYMBICORT 160-4.5 MCG INHALER INHALATION SCH (19:13)
[2021-11-16] MEDS: HYDROcodone/APAP 7.5-325MG 1 EACH TAB PO PRN (20:12)
--- NOTE | 2021-11-16 21:44 | P.PN ---
Subjective Progress Note Date: 11/16/21 - Reason for Consult Consult date: 11/15/21 Medical management - Chief Complaint Abdominal pain - History of Present Illness Pt. is a 51-year-old female with a known history of COPD, history of ovarian cancer status post total hysterectomy, legally blindborn with cataract, bladder surgery presents to ER with complaints of abdominal pain. Patient is on follow- up with general surgery and is planning for umbilical hernia repair as an outpatient. Patient has been having abdominal pain and persistent vomiting since yesterday and presents to ER. Otherwise denies any complaints of chest pain or shortness of breath. No headache or dizziness or lightheadedness. No fever no chills. No cough or sputum production. CT of the abdomen pelvis showed there is an anterior abdominal wall hernia with bowel loops extending into the subcutaneous fat. Difficulty exclude at least partial small bowel obstruction. Correlate for incarceration, strangulation. Hernia was reduced in the ER and was admitted to hospital. Laboratory showed WBC 16.9 hemoglobin 14.1 and platelets 269 Sodium 140 potassium 4.2 chloride 107 BUN 19 and creatinine 0.58 and total bilirubin level is 1.4 Urinalysis is negative for infection. 11/16/2021 Patient is seen and evaluated this morning and is scheduled to undergo umbilical hernia repair with general surgery today. Patient has been NPO for the procedure. Patient continues to report abdominal pain. Patient uses inhalers in the outpatient setting and is concerned as they weren't reordered. Will resume appropriate home medications. Labs within normal limits today. Patient is afebrile. Review of systems: Constitutional: reports of fatigue, no reports of fever, or chills Cardiovascular: No reports of chest pain or palpitations Respiratory: No reports of worsening shortness of breath , reports occasional cough GI: No reports of nausea, no reports of of vomiting, reports abdominal tenderness : No reports of dysuria or retention Neurovascular: no reports of generalized weakness All medications have been reviewed Active Medications Hydrocodone Bitart/Acetaminophen (Hydrocodone/Apap 7.5-325mg 1 Each Tab) 1 each PO Q6H PRN PRN Reason: Pain Last Admin: 11/16/21 20:12 Dose: 1 each Documented by: Albuterol/Ipratropium (Ipratropium-Albuterol 3 Ml Neb) 3 ml INHALATION RT-QID PRN PRN Reason: Shortness Of Breath Budesonide/Formoterol Fumarate (Symbicort 160-4.5 Mcg Inhaler) 2 puff INHALATION RT-BID [facility] Last Admin: 11/16/21 19:13 Dose: Not Given Documented by: Heparin Sodium (Porcine) (Heparin Sodium,Porcine/Pf 5,000 Unit/0.5 Ml Syringe) 5,000 unit SQ Q8HR [facility] Last Admin: 11/16/21 16:15 Dose: Not Given Documented by: Sodium Chloride (Saline 0.9%) 1,000 mls @ 130 mls/hr IV .Q7H42M [facility] Last Admin: 11/16/21 17:43 Dose: 130 mls/hr Documented by: Ipratropium [place] (Ipratropium 0.5 Mg/2.5 Ml Nebu) 0.5 mg INHALATION RT-QID S Ketorolac Tromethamine (Ketorolac 30 Mg/Ml 1 Ml Vial) 15 mg IVP Q6HR [facility] Stop: 11/18/21 10:33 Last Admin: 11/16/21 17:42 Dose: Not Given Documented by: Levothyroxine Sodium (Levothyroxine 88 Mcg Tab) 88 mcg PO DAILY@0630 [facility] Lorazepam (Lorazepam 2 Mg/Ml Inj) 0.5 mg IV Q6HR PRN PRN Reason: Anxiety Morphine Sulfate (Morphine Sulfate 4 Mg/Ml Syringe) 4 mg IV Q4HR PRN PRN Reason: Severe Pain Naloxone HCl (Naloxone 0.4 Mg/Ml 1 Ml Vial) 0.2 mg IV Q2M PRN PRN Reason: Opioid Reversal Ondansetron HCl (Ondansetron 4 Mg/2 Ml Vial) 4 mg IVP Q8HR PRN PRN Reason: Nausea And Vomiting Pantoprazole Sodium (Pantoprazole 40 Mg/10 Ml Vial) 40 mg IV DAILY [facility] Last Admin: 11/16/21 09:01 Dose: 40 mg Documented by: PHYSICAL EXAMINATION: GENERAL: The patient is alert and oriented x3, Well developed, well nourished. morbidly obese HEENT: Pupils are round and equally reacting to light. EOMI. no scleral icterus. No conjunctival pallor. Normocephalic, atraumatic. No pharyngeal erythema. No thyromegaly. CARDIOVASCULAR: S1 and S2 muffled PULMONARY: diminished breath sounds bilaterally with no wheezing or rhonchi noted. ABDOMEN: soft. tender on exam. obese. non-distended, normoactive bowel sounds. No palpable organomegaly. MUSCULOSKELETAL: No joint swelling or deformity. EXTREMITIES: No cyanosis, clubbing, or pedal edema. NEUROLOGICAL: Gross neurological examination did not reveal any focal deficits. SKIN: No rashes. no lesions noted Assessment: Anterior abdominal wall hernia with bowel loops extending into subcutaneous fat. History of ovarian cancer status post surgery. Currently in remission. 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 Leukocytosis hypothyroidism DVT prophylaxis GI prophylaxis Full code Plan: Patient will be continued on IV hydration and pain management. Patient is currently NPO for surgical intervention this afternoon. Patient uses inhalers at home and will reorder. Patient also takes synthroid and will reorder for am. GI and DVT prophylaxis. Will await surgical report. Follow-up labs ordered for am. Further recommendations based on the clinical course. Will continue to follow along closely with surgery. Thank you for this consultation. Objective - Vital Signs Vital signs: Vital Signs Temp 98.4 F 11/15/21 20:00 Pulse 78 11/15/21 20:00 Resp 16 11/15/21 20:00 BP 128/81 11/15/21 20:00 Pulse Ox 93 L 11/15/21 20:00 Intake & Output 11/15/21 11/16/21 11/16/21 18:59 06:59 18:59 Intake Total 0 Balance 0 Weight 108.862 kg Intake: Oral 0 Other: Voiding Method Toilet # Voids 1 2 - Labs CBC & Chem 7: 11/16/21 05:49 11/16/21 05:49 Labs: Abnormal Lab Results - Last 24 Hours (Table) 11/15/21 11/16/21 Range/Units 11:44 05:49 Chloride 111 H (98-107) mmol/L Calcium 7.7 L (8.4-10.2) mg/dL Total Protein 5.4 L (6.3-8.2) g/dL Albumin 2.8 L (3.5-5.0) g/dL Ur Specific [place] >1.050 H (1.001-1.035) Ur Leukocyte Esterase Small H (Negative) Urine Bacteria Rare H (None) /hpf Urine Mucus Rare H (None) /hpf
[2021-11-17] MEDS: HEPARIN SODIUM,PORCINE/PF 5,000 UNIT/0.5 ML SYRINGE SQ SCH ×3 (00:13→16:19)
[2021-11-17] MEDS: KETOROLAC 30 MG/ML 1 ML VIAL IVP SCH ×4 (00:13→18:04)
[2021-11-17] MEDS: SODIUM CHLORIDE 0.9% 1,000 ML IV SCH ×3 (00:24→13:45)
[2021-11-17] MEDS: HYDROcodone/APAP 7.5-325MG 1 EACH TAB PO PRN ×3 (05:44→21:16)
[2021-11-17] MEDS: LEVOTHYROXINE 88 MCG TAB PO SCH (05:45)
[2021-11-17 07:14] LABS: Basophils % (A) 0 %; Eosinophils # (A) 0.2 k/uL (0-0.7); Eosinophils % (A) 2 %; HCT 35.5 % (34.0-46.0); HGB 11.4 gm/dL (11.4-16.0); Lymphocytes # (A) 1.3 k/uL (1.0-4.8); Lymphocytes % (A) 13 %; MCH 29.4 pg (25.0-35.0); MCHC 32.2 g/dL (31.0-37.0); MCV 91.5 fL (80.0-100.0); Mean Platelet Volume 7.4; Monocytes # (A) 0.8 k/uL (0-1.0); Monocytes % (A) 8 %; Neutrophils # (A) 7.7 k/uL (1.3-7.7); Neutrophils % (A) 76 %; Platelet Count 191 k/uL (150-450); RBC 3.88 m/uL (3.80-5.40); RDW 13.2 % (11.5-15.5); WBC 10.2 k/uL (3.8-10.6)
[2021-11-17 07:32] LABS: African American GFR (CKD) >90 (>60 ml/min/1.73 sqM); Anion Gap 1 mmol/L; Blood Urea Nitrogen 12 mg/dL (7-17); Calcium 7.7 mg/dL (8.4-10.2); Carbon Dioxide 26 mmol/L (22-30); Chloride 108 mmol/L (98-107); Glucose 88 mg/dL (74-99); Non-African American GFR(CKD) >90 (>60 ml/min/1.73 sqM); Potassium 3.7 mmol/L (3.5-5.1); Sodium 135 mmol/L (137-145)
[2021-11-17] MEDS: SYMBICORT 160-4.5 MCG INHALER INHALATION SCH ×2 (07:47→19:10)
[2021-11-17] MEDS: PANTOPRAZOLE 40 MG/10 ML VIAL IV SCH (08:15)
[2021-11-17] MEDS: IPRATROPIUM 0.5 MG/2.5 ML NEBU INHALATION SCH ×4 (10:10→19:10)
--- NOTE | 2021-11-17 14:26 | P.PN ---
<Carmenza Davey - Last Filed: 11/17/21 14:22> Subjective Progress Note Date: 11/17/21 CHIEF COMPLAINT: Incisional hernia HISTORY OF PRESENT ILLNESS: Patient is status post exploratory laparotomy, repair incisional hernia, small bowel resection, extensive lysis of adhesions. Postop day #1. She reports that her pain is tolerable. She is having flatus. She is tolerating clear liquids. Denies any nausea vomiting. Afebrile. WBC is 10.2 PHYSICAL EXAM: VITAL SIGNS: Reviewed. GENERAL: Well-developed in no acute distress. HEENT: No sclera icterus. Extraocular movements grossly intact. Moist buccal mucosa. Head is atraumatic, normocephalic. ABDOMEN: Soft. Nondistended. Incision site clean dry and intact. NEUROLOGIC: Alert and oriented. Cranial nerves II through XII grossly intact. ASSESSMENT: 1. Incarcerated incisional hernia with multiple defects, significant abdominal adhesions, small bowel stricture status post exploratory laparotomy, repair incisional hernia, small bowel resection, extensive lysis of adhesions PLAN: -Continue clear liquid diet -Continue pain medication as needed -Encouraged patient to ambulate -Encouraged patient is insensate spirometer -GI prophylaxis Protonix and DVT prophylaxis subcu heparin Physician Bridge Engineer note has been reviewed by physician. Signing provider agrees with the documented findings, assessment, and plan of care. Objective - Vital Signs Vital signs: Vital Signs Temp 98.4 F 11/17/21 11:45 Pulse 70 11/17/21 11:45 Resp 18 11/17/21 11:45 BP 151/74 11/17/21 11:45 Pulse Ox 95 11/17/21 11:45 Intake & Output 11/16/21 11/17/21 11/17/21 18:59 06:59 18:59 Intake Total 4255 1300 Output Total 50 100 40 Balance 4205 1200 -40 Intake: IV 2475 Intake, IV Titration 1660 1300 Amount Sodium Chloride 0.9% 1, 1560 1300 000 ml @ 130 mls/hr IV . Q7H42M [facility] Rx#:[id number] ceFAZolin 2 gm In Sodium 100 Chloride 0.9% 50 ml @ 100 mls/hr IVPB ONCE ONE Rx# :[id number] Oral 120 Output: Drainage 100 40 Anterior Abdomen 100 40 Estimated Blood Loss 50 Other: Voiding Method Toilet Toilet # Voids 3 3 - Labs CBC & Chem 7: 11/17/21 06:40 11/17/21 06:40 Labs: Abnormal Lab Results - Last 24 Hours (Table) 11/17/21 Range/Units 06:40 Sodium 135 L (137-145) mmol/L Chloride 108 H (98-107) mmol/L Calcium 7.7 L (8.4-10.2) mg/dL <[email or web address] - Last Filed: 11/17/21 14:44> Subjective I have personally seen and examined the patient, reviewed the TANK HOUSE OPERATOR /PAs history, exam and MDM and agree with the assessment and plan as written. Based on total visit time, I have performed more than 50% of the visit. As above: Patient denies nausea or vomiting. Appetite is diminished. Pain is fairly well controlled. Increase activity. Advance diet to full liquids tomorrow. Objective - Vital Signs Vital signs: Vital Signs Temp 98.4 F 11/17/21 11:45 Pulse 70 11/17/21 11:45 Resp 18 11/17/21 11:45 BP 151/74 11/17/21 11:45 Pulse Ox 95 11/17/21 11:45 Intake & Output 11/16/21 11/17/21 11/17/21 18:59 06:59 18:59 Intake Total 4255 1300 Output Total 50 100 40 Balance 4205 1200 -40 Intake: IV 2475 Intake, IV Titration 1660 1300 Amount Sodium Chloride 0.9% 1, 1560 1300 000 ml @ 130 mls/hr IV . Q7H42M [facility] Rx#:[id number] ceFAZolin 2 gm In Sodium 100 Chloride 0.9% 50 ml @ 100 mls/hr IVPB ONCE ONE Rx# :[id number] Oral 120 Output: Drainage 100 40 Anterior Abdomen 100 40 Estimated Blood Loss 50 Other: Voiding Method Toilet Toilet # Voids 3 3 - Labs CBC & Chem 7: 11/17/21 06:40 11/17/21 06:40 Labs: Abnormal Lab Results - Last 24 Hours (Table) 11/17/21 Range/Units 06:40 Sodium 135 L (137-145) mmol/L Chloride 108 H (98-107) mmol/L Calcium 7.7 L (8.4-10.2) mg/dL Assessment and Plan (1) Incarcerated incisional hernia Current Visit: Yes Status: Acute Code(s): K43.0 - INCISIONAL HERNIA WITH OBSTRUCTION, WITHOUT GANGRENE SNOMED Code(s): 669693976
--- NOTE | 2021-11-17 15:24 | P.PN ---
Subjective Progress Note Date: 11/17/21 - Reason for Consult Consult date: 11/15/21 Medical management - Chief Complaint Abdominal pain - History of Present Illness Pt. is a 51-year-old female with a known history of COPD, history of ovarian cancer status post total hysterectomy, legally blindborn with cataract, bladder surgery presents to ER with complaints of abdominal pain. Patient is on follow- up with general surgery and is planning for umbilical hernia repair as an outpatient. Patient has been having abdominal pain and persistent vomiting since yesterday and presents to ER. Otherwise denies any complaints of chest pain or shortness of breath. No headache or dizziness or lightheadedness. No fever no chills. No cough or sputum production. CT of the abdomen pelvis showed there is an anterior abdominal wall hernia with bowel loops extending into the subcutaneous fat. Difficulty exclude at least partial small bowel obstruction. Correlate for incarceration, strangulation. Hernia was reduced in the ER and was admitted to hospital. Laboratory showed WBC 16.9 hemoglobin 14.1 and platelets 269 Sodium 140 potassium 4.2 chloride 107 BUN 19 and creatinine 0.58 and total bilirubin level is 1.4 Urinalysis is negative for infection. 11/16/2021 Patient is seen and evaluated this morning and is scheduled to undergo umbilical hernia repair with general surgery today. Patient has been NPO for the procedure. Patient continues to report abdominal pain. Patient uses inhalers in the outpatient setting and is concerned as they weren't reordered. Will resume appropriate home medications. Labs within normal limits today. Patient is afebrile. 11/17/2021 Patient is seen and evaluated in follow-up today status post exploratory laparotomy, repair of incisional hernia, small bowel resection, and extensive lysis of adhesions postop day #1. Per surgery patient's abdomen was far more extensive than what was seen on CAT scan. Patient reports the passing gas although no reports of bowel movement. Patient continues on clear liquids and will decrease IV fluids. Patient reports to getting up and walking around the room and to the bathroom multiple times. Inhalers reordered although most of her inhalers are nonformulary and family will be bringing them in to resume appropriate home medications. Continue with breathing inhalational treatments as needed as well. Encouraged incentive spirometer and continue using at least 10 times every hour while awake. Labs: WBC is 10.2, hemoglobin is 11.4, platelets are 191, sodium is 135, potassium 3.7, BUN is 12, creatinine 0.6, calcium is 7.7. Review of systems: Constitutional: no reports of fatigue, no reports of fever, or chills Cardiovascular: No reports of chest pain or palpitations Respiratory: No reports of shortness of breath , reports occasional cough GI: No reports of nausea, no reports of of vomiting, reports abdominal tenderness, reports poor oral intake : No reports of dysuria or retention Neurovascular: no reports of generalized weakness All medications have been reviewed Active Medications Hydrocodone Bitart/Acetaminophen (Hydrocodone/Apap 7.5-325mg 1 Each Tab) 1 each PO Q6H PRN PRN Reason: Pain Last Admin: 11/17/21 13:51 Dose: 1 each Documented by: Albuterol/Ipratropium (Ipratropium-Albuterol 3 Ml Neb) 3 ml INHALATION RT-QID PRN PRN Reason: Shortness Of Breath Budesonide/Formoterol Fumarate (Symbicort 160-4.5 Mcg Inhaler) 2 puff INHALATION RT-BID [facility] Last Admin: 11/17/21 07:47 Dose: Not Given Documented by: Heparin Sodium (Porcine) (Heparin Sodium,Porcine/Pf 5,000 Unit/0.5 Ml Syringe) 5,000 unit SQ Q8HR [facility] Last Admin: 11/17/21 08:15 Dose: 5,000 unit Documented by: Sodium Chloride (Saline 0.9%) 1,000 mls @ 75 mls/hr IV .[id number] [facility] Last Admin: 11/17/21 13:45 Dose: 75 mls/hr Documented by: Ipratropium [place] (Ipratropium 0.5 Mg/2.5 Ml Nebu) 0.5 mg INHALATION RT-QID [facility] Last Admin: 11/17/21 13:39 Dose: Not Given Documented by: Ketorolac Tromethamine (Ketorolac 30 Mg/Ml 1 Ml Vial) 15 mg IVP Q6HR [facility] Stop: 11/18/21 10:33 Last Admin: 11/17/21 12:32 Dose: 15 mg Documented by: Levothyroxine Sodium (Levothyroxine 88 Mcg Tab) 88 mcg PO DAILY@0630 [facility] Last Admin: 11/17/21 05:45 Dose: 88 mcg Documented by: Lorazepam (Lorazepam 2 Mg/Ml Inj) 0.5 mg IV Q6HR PRN PRN Reason: Anxiety Morphine Sulfate (Morphine Sulfate 4 Mg/Ml Syringe) 4 mg IV Q4HR PRN PRN Reason: Severe Pain Naloxone HCl (Naloxone 0.4 Mg/Ml 1 Ml Vial) 0.2 mg IV Q2M PRN PRN Reason: Opioid Reversal Ondansetron HCl (Ondansetron 4 Mg/2 Ml Vial) 4 mg IVP Q8HR PRN PRN Reason: Nausea And Vomiting Pantoprazole Sodium (Pantoprazole 40 Mg/10 Ml Vial) 40 mg IV DAILY [facility] Last Admin: 11/17/21 08:15 Dose: 40 mg Documented by: PHYSICAL EXAMINATION: GENERAL: The patient is alert and oriented x3, Well developed, well nourished. morbidly obese HEENT: Pupils are round and equally reacting to light. EOMI. no scleral icterus. No conjunctival pallor. Normocephalic, atraumatic. No pharyngeal erythema. No thyromegaly. CARDIOVASCULAR: S1 and S2 muffled PULMONARY: diminished breath sounds bilaterally with no wheezing or rhonchi noted. ABDOMEN: soft. tender on exam. obese. non-distended, normoactive bowel sounds. No palpable organomegaly. MUSCULOSKELETAL: No joint swelling or deformity. EXTREMITIES: No cyanosis, clubbing, or pedal edema. NEUROLOGICAL: Gross neurological examination did not reveal any focal deficits. SKIN: No rashes. no lesions noted Assessment: Anterior abdominal wall hernia with bowel loops extending into subcutaneous fat. Status post exploratory laparotomy, repair of incisional hernia, small bowel resection, and extensive lysis of adhesions with Dr. Grady History of ovarian cancer status post surgery. Currently in remission. 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 Leukocytosis, improved hypothyroidism DVT prophylaxis GI prophylaxis Full code Plan: Patient will be continued on IV hydration at a reduced rate and pain management per surgical services. She is maintained on clear liquids and continues to report poor oral intake with not much of an appetite yet. Patient does report to passing gas with no bowel movement as of yet. Patient is using incentive spirometer and encourage the patient to continue using at least 10 times every hour while awake. Increase activity as tolerated. Patient reports to getting up multiple times and walking to the bathroom. Patient will be bringing in home inhalers to continue using and will also recommending breathing inhalational treatments as needed. Further recommendations based on the clinical course. Will continue to follow along closely with surgery. Thank you for this consultation. The impression and plan of care has been dictated by Oksana Whitlock, nurse practitioner as directed. Dr. Torsten MD I have performed a history and examination and MDM of this patient, discussed the same with the dictator, and agree with the dictator's assessment and plan as written ,documented as a scribe. Based on total visit time, I have performed more than 50% of the visit. Any additional findings or plans will be noted. Objective - Vital Signs Vital signs: Vital Signs Temp 99.6 F 11/17/21 04:15 Pulse 73 11/17/21 04:15 Resp 16 11/17/21 04:15 BP 138/72 11/17/21 04:15 Pulse Ox 95 11/17/21 04:15 Intake & Output 11/16/21 11/17/21 11/17/21 18:59 06:59 18:59 Intake Total 4255 1300 Output Total 50 100 Balance 4205 1200 Intake: IV 2475 Intake, IV Titration 1660 1300 Amount Sodium Chloride 0.9% 1, 1560 1300 000 ml @ 130 mls/hr IV . Q7H42M [facility] Rx#:[id number] ceFAZolin 2 gm In Sodium 100 Chloride 0.9% 50 ml @ 100 mls/hr IVPB ONCE ONE Rx# :[id number] Oral 120 Output: Drainage 100 Anterior Abdomen 100 Estimated Blood Loss 50 Other: Voiding Method Toilet Toilet # Voids 3 3 - Labs CBC & Chem 7: 11/17/21 06:40 11/17/21 06:40 Labs: Abnormal Lab Results - Last 24 Hours (Table) 11/17/21 Range/Units 06:40 Sodium 135 L (137-145) mmol/L Chloride 108 H (98-107) mmol/L Calcium 7.7 L (8.4-10.2) mg/dL
[2021-11-18] MEDS: KETOROLAC 30 MG/ML 1 ML VIAL IVP SCH ×2 (01:32→06:15)
[2021-11-18] MEDS: HEPARIN SODIUM,PORCINE/PF 5,000 UNIT/0.5 ML SYRINGE SQ SCH ×5 (01:33→23:51)
[2021-11-18] MEDS: LEVOTHYROXINE 88 MCG TAB PO SCH (06:16)
[2021-11-18] MEDS: SODIUM CHLORIDE 0.9% 1,000 ML IV SCH ×4 (06:18→23:50)
[2021-11-18] MEDS: IPRATROPIUM 0.5 MG/2.5 ML NEBU INHALATION SCH ×4 (07:36→20:10)
[2021-11-18] MEDS: SYMBICORT 160-4.5 MCG INHALER INHALATION SCH ×2 (07:36→20:10)
[2021-11-18] MEDS: PANTOPRAZOLE 40 MG/10 ML VIAL IV SCH (09:13)
--- NOTE | 2021-11-18 12:10 | P.PN ---
<Carmenza Davey - Last Filed: 11/18/21 12:08> Subjective Progress Note Date: 11/18/21 CHIEF COMPLAINT: Incisional hernia HISTORY OF PRESENT ILLNESS: Patient is status post exploratory laparotomy, repair incisional hernia, small bowel resection, extensive lysis of adhesions. Postop day #2. She reports that her pain is tolerable. She is tolerating her full liquids. She is having flatus. Denies any bowel movement. Denies any nausea vomiting. Afebrile. WBC is 10.2 yesterday PHYSICAL EXAM: VITAL SIGNS: Reviewed. GENERAL: Well-developed in no acute distress. HEENT: No sclera icterus. Extraocular movements grossly intact. Moist buccal mucosa. Head is atraumatic, normocephalic. ABDOMEN: Soft. Nondistended. Incision site clean dry and intact. Abdominal binder in place NEUROLOGIC: Alert and oriented. Cranial nerves II through XII grossly intact. ASSESSMENT: 1. Incarcerated incisional hernia with multiple defects, significant abdominal adhesions, small bowel stricture status post exploratory laparotomy, repair incisional hernia, small bowel resection, extensive lysis of adhesions PLAN: -Continue full liquid diet -Continue pain medication as needed -Encouraged patient to ambulate -Encouraged patient to use incentive spirometer -GI prophylaxis Protonix and DVT prophylaxis subcu heparin Physician Editor [employer] note has been reviewed by physician. Signing provider agrees with the documented findings, assessment, and plan of care. Objective - Vital Signs Vital signs: Vital Signs Temp 98.8 F 11/18/21 04:36 Pulse 77 11/18/21 04:36 Resp 16 11/18/21 04:36 BP 142/74 11/18/21 04:36 Pulse Ox 95 11/18/21 04:36 Intake & Output 11/17/21 11/18/21 11/18/21 18:59 06:59 18:59 Intake Total 900 900 Output Total 60 20 Balance 840 880 Intake: Intake, IV Titration 900 900 Amount Sodium Chloride 0.9% 1, 900 900 000 ml @ 75 mls/hr IV . [id number] [facility] Rx#:[id number] Output: Drainage 60 20 Anterior Abdomen 60 20 Other: Voiding Method Toilet Toilet # Voids 4 - Labs CBC & Chem 7: 11/17/21 06:40 11/17/21 06:40 <Jl Grady - Last Filed: 11/18/21 14:54> Subjective I have personally seen and examined the patient, reviewed the TELEPHONE SERVICE REPRESENTATIVE /PAs history, exam and MDM and agree with the assessment and plan as written. Based on total v isit time, I have performed more than 50% of the visit. As above: Patient doing well today. Some nausea. Tolerating full liquids otherwise. She is passing flatus. Pain is controlled. Continue ambulation. Possible discharge tomorrow or the following day. Objective - Vital Signs Vital signs: Vital Signs Temp 98.6 F 11/18/21 12:00 Pulse 69 11/18/21 12:00 Resp 18 11/18/21 12:00 BP 160/77 11/18/21 12:00 Pulse Ox 97 11/18/21 12:00 Intake & Output 11/17/21 11/18/21 11/18/21 18:59 06:59 18:59 Intake Total 900 900 Output Total 60 20 Balance 840 880 Intake: Intake, IV Titration 900 900 Amount Sodium Chloride 0.9% 1, 900 900 000 ml @ 75 mls/hr IV . [id number] [facility] Rx#:[id number] Output: Drainage 60 20 Anterior Abdomen 60 20 Other: Voiding Method Toilet Toilet # Voids 4 - Labs CBC & Chem 7: 11/17/21 06:40 11/17/21 06:40 Assessment and Plan (1) Incarcerated incisional hernia Current Visit: Yes Status: Acute Code(s): K43.0 - INCISIONAL HERNIA WITH OBSTRUCTION, WITHOUT GANGRENE SNOMED Code(s): 903364305
[2021-11-18] MEDS: HYDROcodone/APAP 7.5-325MG 1 EACH TAB PO PRN ×2 (16:45→23:54)
--- NOTE | 2021-11-19 00:33 | P.PN ---
Subjective Progress Note Date: 11/18/21 - Reason for Consult Consult date: 11/15/21 Medical management - Chief Complaint Abdominal pain - History of Present Illness Pt. is a 51-year-old female with a known history of COPD, history of ovarian cancer status post total hysterectomy, legally blindborn with cataract, bladder surgery presents to ER with complaints of abdominal pain. Patient is on follow- up with general surgery and is planning for umbilical hernia repair as an outpatient. Patient has been having abdominal pain and persistent vomiting since yesterday and presents to ER. Otherwise denies any complaints of chest pain or shortness of breath. No headache or dizziness or lightheadedness. No fever no chills. No cough or sputum production. CT of the abdomen pelvis showed there is an anterior abdominal wall hernia with bowel loops extending into the subcutaneous fat. Difficulty exclude at least partial small bowel obstruction. Correlate for incarceration, strangulation. Hernia was reduced in the ER and was admitted to hospital. Laboratory showed WBC 16.9 hemoglobin 14.1 and platelets 269 Sodium 140 potassium 4.2 chloride 107 BUN 19 and creatinine 0.58 and total bilirubin level is 1.4 Urinalysis is negative for infection. 11/16/2021 Patient is seen and evaluated this morning and is scheduled to undergo umbilical hernia repair with general surgery today. Patient has been NPO for the procedure. Patient continues to report abdominal pain. Patient uses inhalers in the outpatient setting and is concerned as they weren't reordered. Will resume appropriate home medications. Labs within normal limits today. Patient is afebrile. 11/17/2021 Patient is seen and evaluated in follow-up today status post exploratory laparotomy, repair of incisional hernia, small bowel resection, and extensive lysis of adhesions postop day #1. Per surgery patient's abdomen was far more extensive than what was seen on CAT scan. Patient reports the passing gas although no reports of bowel movement. Patient continues on clear liquids and will decrease IV fluids. Patient reports to getting up and walking around the room and to the bathroom multiple times. Inhalers reordered although most of her inhalers are nonformulary and family will be bringing them in to resume appropriate home medications. Continue with breathing inhalational treatments as needed as well. Encouraged incentive spirometer and continue using at least 10 times every hour while awake. 11/18/2021 Patient in follow up this morning tolerating diet and no reports of nausea or vomiting noted. Patient reports to abdominal pain but is reporting improvement. Binder noted. Surgical dressing is dry and intact. Patient is morbidly obese. Patient has been up and walking to the bathroom. Patient reports to passing gas and no bowel movement as of yet. Patient continues with incentive spirometer. Patient denies chest pain or palpitations. Patient is afebrile. Review of systems: Constitutional: no reports of fatigue, no reports of fever, or chills Cardiovascular: No reports of chest pain or palpitations Respiratory: No reports of shortness of breath , reports occasional cough GI: No reports of nausea, no reports of of vomiting, reports abdominal tenderness, reports slight improvement in oral intake : No reports of dysuria or retention Neurovascular: no reports of generalized weakness All medications have been reviewed Active Medications Hydrocodone Bitart/Acetaminophen (Hydrocodone/Apap 7.5-325mg 1 Each Tab) 1 each PO Q6H PRN PRN Reason: Pain Last Admin: 11/18/21 23:54 Dose: 1 each Documented by: Albuterol/Ipratropium (Ipratropium-Albuterol 3 Ml Neb) 3 ml INHALATION RT-QID PRN PRN Reason: Shortness Of Breath Budesonide/Formoterol Fumarate (Symbicort 160-4.5 Mcg Inhaler) 2 puff INHALATION RT-BID [facility] Last Admin: 11/18/21 20:10 Dose: Not Given Documented by: Heparin Sodium (Porcine) (Heparin Sodium,Porcine/Pf 5,000 Unit/0.5 Ml Syringe) 5,000 unit SQ Q8HR [facility] Last Admin: 11/18/21 23:51 Dose: 5,000 unit Documented by: Sodium Chloride (Saline 0.9%) 1,000 mls @ 75 mls/hr IV .[id number] [facility] Last Admin: 11/18/21 23:50 Dose: Not Given Documented by: Ipratropium [place] (Ipratropium 0.5 Mg/2.5 Ml Nebu) 0.5 mg INHALATION RT-QID [facility] Last Admin: 11/18/21 20:10 Dose: Not Given Documented by: Levothyroxine Sodium (Levothyroxine 88 Mcg Tab) 88 mcg PO DAILY@0630 [facility] Last Admin: 11/18/21 06:16 Dose: 88 mcg Documented by: Lorazepam (Lorazepam 2 Mg/Ml Inj) 0.5 mg IV Q6HR PRN PRN Reason: Anxiety Morphine Sulfate (Morphine Sulfate 4 Mg/Ml Syringe) 4 mg IV Q4HR PRN PRN Reason: Severe Pain Naloxone HCl (Naloxone 0.4 Mg/Ml 1 Ml Vial) 0.2 mg IV Q2M PRN PRN Reason: Opioid Reversal Ondansetron HCl (Ondansetron 4 Mg/2 Ml Vial) 4 mg IVP Q8HR PRN PRN Reason: Nausea And Vomiting Pantoprazole Sodium (Pantoprazole 40 Mg/10 Ml Vial) 40 mg IV DAILY [facility] Last Admin: 11/18/21 09:13 Dose: 40 mg Documented by: PHYSICAL EXAMINATION: GENERAL: The patient is alert and oriented x3, Well developed, well nourished. morbidly obese HEENT: Pupils are round and equally reacting to light. EOMI. no scleral icterus. No conjunctival pallor. Normocephalic, atraumatic. No pharyngeal erythema. No thyromegaly. CARDIOVASCULAR: S1 and S2 muffled PULMONARY: diminished breath sounds bilaterally with no wheezing or rhonchi noted. ABDOMEN: soft. tender on exam. obese. non-distended, normoactive bowel sounds. No palpable organomegaly. MUSCULOSKELETAL: No joint swelling or deformity. EXTREMITIES: No cyanosis, clubbing, or pedal edema. NEUROLOGICAL: Gross neurological examination did not reveal any focal deficits. SKIN: No rashes. no lesions noted Assessment: Anterior abdominal wall hernia with bowel loops extending into subcutaneous fat. Status post exploratory laparotomy, repair of incisional hernia, small bowel resection, and extensive lysis of adhesions with Dr. Grady History of ovarian cancer status post surgery. Currently in remission. 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 Leukocytosis, improved hypothyroidism DVT prophylaxis GI prophylaxis Full code Plan: Patient will be continued on IV hydration at a reduced rate and pain management per surgical services. She is maintained on clear liquids and is advancing diet per surgery. Patient does report to passing gas with no bowel movement as of yet. Patient is using incentive spirometer and again encouraged the patient to continue using at least 10 times every hour while awake. Increase activity as tolerated. Patient reports to getting up multiple times and walking to the [place]. Patient family brought home inhalers that were verified and will continue. Further recommendations based on the clinical course. Will continue to follow along closely with surgery. Thank you for this consultation. The impression and plan of care has been dictated by Oksana Whitlock, nurse practitioner as directed. Dr. Torsten MD I have performed a history and examination and MDM of this patient, discussed the same with the dictator, and agree with the dictator's assessment and plan as written ,documented as a scribe. Based on total visit time, I have performed more than 50% of the visit. Any additional findings or plans will be noted. Objective - Vital Signs Vital signs: Vital Signs Temp 98.9 F 11/18/21 19:30 Pulse 81 11/18/21 19:30 Resp 20 11/18/21 19:30 BP 138/77 11/18/21 19:30 Pulse Ox 94 L 11/18/21 19:30 Intake & Output 11/18/21 11/18/21 11/19/21 06:59 18:59 06:59 Intake Total 900 Output Total 20 60 Balance 880 -60 Intake: Intake, IV Titration 900 Amount Sodium Chloride 0.9% 1, 900 000 ml @ 75 mls/hr IV . [id number] [facility] Rx#:[id number] Output: Drainage 20 60 Anterior Abdomen 20 60 Other: Voiding Method Toilet Toilet Toilet # Voids 3 3 - Labs CBC & Chem 7: 11/17/21 06:40 11/17/21 06:40
[2021-11-19] MEDS: LEVOTHYROXINE 88 MCG TAB PO SCH (06:07)
[2021-11-19] MEDS: SYMBICORT 160-4.5 MCG INHALER INHALATION SCH (07:11)
[2021-11-19] MEDS: IPRATROPIUM 0.5 MG/2.5 ML NEBU INHALATION SCH ×3 (07:11→15:38)
[2021-11-19] MEDS: PANTOPRAZOLE 40 MG/10 ML VIAL IV SCH (09:21)
[2021-11-19] MEDS: HEPARIN SODIUM,PORCINE/PF 5,000 UNIT/0.5 ML SYRINGE SQ SCH (09:22)
[2021-11-19 12:43] VITALS: BP 152/81; PULSE 67; RESP 18; TEMP 98.1
[2021-11-19] MEDS ORDERED: bisacodyL 10 MG SUPP RECTAL STA (13:22)
[2021-11-19] MEDS: SODIUM CHLORIDE 0.9% 1,000 ML IV SCH (13:41)
--- NOTE | 2021-11-19 14:17 | P.DS ---
Providers Date of admission: 11/16/21 12:19 Expected date of discharge: 11/19/21 Attending physician: Jl Grady Consults: 11/15/21 11:07 Consult Physician Routine Consulting Provider: Kaley Felix Consult Reason/Comments: Medical management Do you want consulting provider notified?: Yes Primary care physician: Yessica Ghosh MD Hospital Course: Discharge diagnosis 1. Incarcerated incisional hernia with multiple defects, significant abdominal adhesions, small bowel stricture status post exploratory laparotomy, repair incisional hernia, small bowel resection, extensive lysis of adhesions Hospital course This is a 51-year-old female came to the hospital yesterday with complaints of a hernia near her belly button. Patient says she has had trouble pushing it back in lately. Patient has an appointment to see me regarding this in December. She was seen previously in 2018 for a hernia here that was smaller in nature. Was not causing much symptoms at that time. Patient had episodes of bilious emesis. CAT scan performed showing partial bowel obstruction at the site of hernia. Patient is status post exploratory laparotomy, repair incisional hernia, small bowel resection, extensive lysis of adhesions. She tolerated surgery well. Her pain is controlled. She has been up and ambulating. She has had flatus and bowel movement. She is tolerating diet. She is afebrile. She is stable for discharge. Please refer to chart for any further details. Physician Core Cutter And Reamer note has been reviewed by physician. Signing provider agrees with the documented findings, assessment, and plan of care. Patient Condition at Discharge: Stable Plan - Discharge Summary New Discharge Prescriptions: New HYDROcodone/APAP 7.5-325MG [[place] 7.5-325] 1 tab PO Q6HR PRN 3 Days #12 tab PRN Reason: Pain Docusate [Colace] 100 mg PO BID #30 capsule Continue Albuterol Sulfate [Proair Hfa] 2 puff INHALATION RT-Q4H PRN PRN Reason: Shortness Of Breath Ipratropium-Albuterol Nebulize [Duoneb 0.5 mg-3 mg/3 ml Soln] 3 ml INHALATION RT-QID PRN PRN Reason: Shortness Of Breath Ibuprofen [Motrin Ib] 600 mg PO Q8H PRN PRN Reason: Pain Or Fever > 100.5 Levothyroxine Sodium [Synthroid] 88 mcg PO DAILY Fluticasone Propion/Salmeterol [[place] 500-50 Inhub] 1 puff INHALATION RT-BID Ipratropium [place] [Atrovent Hfa] 2 puff INHALATION RT-QID Discontinued Acetaminophen [Tylenol Extra Strength] 1,000 mg PO Q4H PRN PRN Reason: Pain Discharge Medication List Albuterol Sulfate [Proair Hfa] 2 puff INHALATION RT-Q4H PRN 02/21/17 [History] Ipratropium-Albuterol Nebulize [Duoneb 0.5 mg-3 mg/3 ml Soln] 3 ml INHALATION RT-QID PRN 02/21/17 [History] Fluticasone Propion/Salmeterol [[place] 500-50 Inhub] 1 puff INHALATION RT-BID 11/15/21 [History] Ibuprofen [Motrin Ib] 600 mg PO Q8H PRN 11/15/21 [History] Ipratropium [place] [Atrovent Hfa] 2 puff INHALATION RT-QID 11/15/21 [History] Levothyroxine Sodium [Synthroid] 88 mcg PO DAILY 11/15/21 [History] Docusate [Colace] 100 mg PO BID #30 capsule 11/19/21 [Rx] HYDROcodone/APAP 7.5-325MG [[place] 7.5-325] 1 tab PO Q6HR PRN 3 Days #12 tab 11/19/21 [Rx] Follow up Appointment(s)/Referral(s): Jl Grady MD [Medical Doctor] - 1 Week Yessica Ghosh MD [Primary Care Provider] - 1-2 days Activity/Diet/Wound Care/Special Instructions: No driving while taking [place] No lifting over 10 pounds You may shower. No soaking or tub baths for 2 weeks Very light activity until you are reevaluated at your follow up appointment with your surgeon Keep a log of LAMINE drain output and bring with you to your follow-up appointment Milk/strip drains 2-3 times a day Patient to continue on a full liquid diet until she is passing more gas and having bowel movements and then advance diet as tolerated. Discharge Disposition: HOME SELF-CARE
--- NOTE | 2021-11-19 15:37 | P.PN ---
Subjective Progress Note Date: 11/19/21 - Reason for Consult Consult date: 11/15/21 Medical management - Chief Complaint Abdominal pain - History of Present Illness Pt. is a 51-year-old female with a known history of COPD, history of ovarian cancer status post total hysterectomy, legally blindborn with cataract, bladder surgery presents to ER with complaints of abdominal pain. Patient is on follow- up with general surgery and is planning for umbilical hernia repair as an outpatient. Patient has been having abdominal pain and persistent vomiting since yesterday and presents to ER. Otherwise denies any complaints of chest pain or shortness of breath. No headache or dizziness or lightheadedness. No fever no chills. No cough or sputum production. CT of the abdomen pelvis showed there is an anterior abdominal wall hernia with bowel loops extending into the subcutaneous fat. Difficulty exclude at least partial small bowel obstruction. Correlate for incarceration, strangulation. Hernia was reduced in the ER and was admitted to hospital. Laboratory showed WBC 16.9 hemoglobin 14.1 and platelets 269 Sodium 140 potassium 4.2 chloride 107 BUN 19 and creatinine 0.58 and total bilirubin level is 1.4 Urinalysis is negative for infection. 11/16/2021 Patient is seen and evaluated this morning and is scheduled to undergo umbilical hernia repair with general surgery today. Patient has been NPO for the procedure. Patient continues to report abdominal pain. Patient uses inhalers in the outpatient setting and is concerned as they weren't reordered. Will resume appropriate home medications. Labs within normal limits today. Patient is afebrile. 11/17/2021 Patient is seen and evaluated in follow-up today status post exploratory laparotomy, repair of incisional hernia, small bowel resection, and extensive lysis of adhesions postop day #1. Per surgery patient's abdomen was far more extensive than what was seen on CAT scan. Patient reports the passing gas although no reports of bowel movement. Patient continues on clear liquids and will decrease IV fluids. Patient reports to getting up and walking around the room and to the bathroom multiple times. Inhalers reordered although most of her inhalers are nonformulary and family will be bringing them in to resume appropriate home medications. Continue with breathing inhalational treatments as needed as well. Encouraged incentive spirometer and continue using at least 10 times every hour while awake. 11/18/2021 Patient in follow up this morning tolerating diet and no reports of nausea or vomiting noted. Patient reports to abdominal pain but is reporting improvement. Binder noted. Surgical dressing is dry and intact. Patient is morbidly obese. Patient has been up and walking to the bathroom. Patient reports to passing gas and no bowel movement as of yet. Patient continues with incentive spirometer. Patient denies chest pain or palpitations. Patient is afebrile. 11/19/2021 Patient is seen this morning currently walking the halls. Patient reports to feeling much better and is passing gas. No bowel movement yet. Patient reports to tolerating approx 50% of advanced diet and feels fullness. Denies nausea or vomiting. Patient continues on inhalers and also continues with IS use frequently. Patient possibly going home today. Review of systems: Constitutional: no reports of fatigue, no reports of fever, or chills Cardiovascular: No reports of chest pain or palpitations Respiratory: No reports of shortness of breath , reports occasional cough GI: No reports of nausea, no reports of of vomiting, reports abdominal tenderness improving : No reports of dysuria or retention Neurovascular: no reports of generalized weakness All medications have been reviewed Active Medications Hydrocodone Bitart/Acetaminophen (Hydrocodone/Apap 7.5-325mg 1 Each Tab) 1 each PO Q6H PRN PRN Reason: Pain Last Admin: 11/18/21 23:54 Dose: 1 each Documented by: Albuterol/Ipratropium (Ipratropium-Albuterol 3 Ml Neb) 3 ml INHALATION RT-QID PRN PRN Reason: Shortness Of Breath Budesonide/Formoterol Fumarate (Symbicort 160-4.5 Mcg Inhaler) 2 puff IN HALATION RT-BID [facility] Last Admin: 11/19/21 07:11 Dose: Not Given Documented by: Heparin Sodium (Porcine) (Heparin Sodium,Porcine/Pf 5,000 Unit/0.5 Ml Syringe) 5,000 unit SQ Q8HR [facility] Last Admin: 11/19/21 09:22 Dose: 5,000 unit Documented by: Sodium Chloride (Saline 0.9%) 1,000 mls @ 75 mls/hr IV .[id number] [facility] Last Admin: 11/18/21 23:50 Dose: Not Given Documented by: Ipratropium [place] (Ipratropium 0.5 Mg/2.5 Ml Nebu) 0.5 mg INHALATION RT-QID [facility] Last Admin: 11/19/21 07:11 Dose: Not Given Documented by: Levothyroxine Sodium (Levothyroxine 88 Mcg Tab) 88 mcg PO DAILY@0630 [facility] Last Admin: 11/19/21 06:07 Dose: 88 mcg Documented by: Lorazepam (Lorazepam 2 Mg/Ml Inj) 0.5 mg IV Q6HR PRN PRN Reason: Anxiety Morphine Sulfate (Morphine Sulfate 4 Mg/Ml Syringe) 4 mg IV Q4HR PRN PRN Reason: Severe Pain Naloxone HCl (Naloxone 0.4 Mg/Ml 1 Ml Vial) 0.2 mg IV Q2M PRN PRN Reason: Opioid Reversal Ondansetron HCl (Ondansetron 4 Mg/2 Ml Vial) 4 mg IVP Q8HR PRN PRN Reason: Nausea And Vomiting Pantoprazole Sodium (Pantoprazole 40 Mg/10 Ml Vial) 40 mg IV DAILY [facility] Last Admin: 11/19/21 09:21 Dose: 40 mg Documented by: PHYSICAL EXAMINATION: GENERAL: The patient is alert and oriented x3, Well developed, well nourished. morbidly obese HEENT: Pupils are round and equally reacting to light. EOMI. no scleral icterus. No conjunctival pallor. Normocephalic, atraumatic. No pharyngeal erythema. No thyromegaly. CARDIOVASCULAR: S1 and S2 muffled PULMONARY: diminished breath sounds bilaterally with no wheezing or rhonchi noted. ABDOMEN: soft. tender on exam. obese. non-distended, normoactive bowel sounds. No palpable organomegaly. MUSCULOSKELETAL: No joint swelling or deformity. EXTREMITIES: No cyanosis, clubbing, or pedal edema. NEUROLOGICAL: Gross neurological examination did not reveal any focal deficits. SKIN: No rashes. no lesions noted Assessment: Anterior abdominal wall hernia with bowel loops extending into subcutaneous fat. Status post exploratory laparotomy, repair of incisional hernia, small bowel resection, and extensive lysis of adhesions with Dr. Grady History of ovarian cancer status post surgery. Currently in remission. 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 Leukocytosis, improved hypothyroidism DVT prophylaxis GI prophylaxis Full code Plan: Patient will be continued on current advanced diet. Patient increasing activity and walking the halls. Positive bowel sounds and patient is passing gas. No bowel movement as of yet. Patient is tolerating diet and discussed with the patient about the importance of small frequent meals and portion sizes. Patient also continues with using incentive spirometer and encouraged patient to continue using at home as well. IV fluids discontinued. Patient reports to possible discharge later today. Will continue to follow along closely with surgery. Thank you for this consultation. The impression and plan of care has been dictated by Oksana Whitlock, nurse practitioner as directed. Dr. Torsten MD I have performed a history and examination and MDM of this patient, discussed the same with the dictator, and agree with the dictator's assessment and plan as written ,documented as a scribe. Based on total visit time, I have performed more than 50% of the visit. Any additional findings or plans will be noted. Objective - Vital Signs Vital signs: Vital Signs Temp 98 F 11/19/21 04:30 Pulse 73 11/19/21 04:30 Resp 20 11/19/21 04:30 BP 144/72 11/19/21 04:30 Pulse Ox 97 11/19/21 04:30 Intake & Output 11/18/21 11/19/21 11/19/21 18:59 06:59 18:59 Intake Total 100 Output Total 60 Balance -60 100 Intake: Oral 100 Output: Drainage 60 Anterior Abdomen 60 Other: Voiding Method Toilet Toilet # Voids 3 2 - Labs CBC & Chem 7: 11/17/21 06:40 11/17/21 06:40
== END 2021-11-19 15:57 | disposition home or self-care (01) | DRG 330 ==
LOC: EC 05:25 → 5NMEDONC 08:01 → OBSVTOIN 11-16 12:19
PROVIDERS: ADMIT Surgery; ATTEND Surgery
PROC: 0WQF0ZZ Repair Abdominal Wall, Open Approach (ICD-10-PCS; 2021-11-16)
PROC: 0DNW0ZZ Release Peritoneum, Open Approach (ICD-10-PCS; 2021-11-16)
PROC: 0DB80ZZ Excision of Small Intestine, Open Approach (ICD-10-PCS; principal; 2021-11-16 10:50)
DX: K43.0 Incisional hernia with obstruction, without gangrene (principal); Z68.41 Body mass index [BMI] 40.0-44.9, adult; E03.9 Hypothyroidism, unspecified; E66.01 Morbid (severe) obesity due to excess calories; H54.8 Legal blindness, as defined in USA; J44.9 Chronic obstructive pulmonary disease, unspecified; K21.9 Gastro-esophageal reflux disease without esophagitis; K42.9 Umbilical hernia without obstruction or gangrene; K66.0 Peritoneal adhesions (postprocedural) (postinfection); Z90.722 Acquired absence of ovaries, bilateral; Z90.710 Acquired absence of both cervix and uterus; Z87.891 Personal history of nicotine dependence; Z85.43 Personal history of malignant neoplasm of ovary; Z88.1 Allergy status to other antibiotic agents; Z88.5 Allergy status to narcotic agent; Z79.890 Hormone replacement therapy; Z98.890 Other specified postprocedural states; Z98.42 Cataract extraction status, left eye; Z98.41 Cataract extraction status, right eye; Z82.3 Family history of stroke
CPT/HCPCS: 36415; 74177; 80048; 80053; 81001; 82150; 83605; 83690; 83735; 84100; 85025; 88307; 96361; 96374; 99285

== ENCOUNTER → 2022-01-07 | Outpatient (CLI) | payer BC, MEDICARE | END | disposition home or self-care (01) | LOC: LABWHC1 10:28 | PROVIDERS: ATTEND Internal Medicine Endocrinology, Diabetes & Metabolism | DX: E03.8 Other specified hypothyroidism (principal) | CPT/HCPCS: 36415; 84443 ==

== ENCOUNTER 2022-02-26 07:43 | Day surgery (SDC) | payer BC, MEDICARE ==
[2022-02-24 12:37] VITALS: BMI 45.3
[~2022-02-26 07:43] MED LIST changes: -ACETAMINOPHEN TAB 500 MG TAB PO ONE; +ACETAMINOPHEN TAB 500 MG TAB PO PRN; +DEXAMETHASONE SOD PHOSPHATE 4 MG/ML 1 ML VIAL IV ONE; +HEPARIN SODIUM,PORCINE/PF 5,000 UNIT/0.5 ML SYRINGE SQ PRN; +HYDROmorphone 0.5 MG/0.5 ML SYRINGE IVP PRN; +LACTATED RINGERS 1,000 ML IV SCH; +LIDOCAINE 1% (10MG/ML) FOR IV START INTRADERMA PRN; -LIDOCAINE 1% 20 ML VIAL (10MG/ML) FOR IV START INTRADERMA PRN; -METOCLOPRAMIDE 5 MG/ML 2 ML VIAL IVP PRN; +ONDANSETRON 4 MG/2 ML VIAL IVP ONE; -ONDANSETRON 4 MG/2 ML VIAL IVP PRN
--- NOTE | 2022-02-26 07:52 | P.GSHP ---
History of Present Illness H&P Date: 02/26/22 Chief Complaint: Back cyst 51-year-old female known to our service. Patient had recently infected right upper back sebaceous cyst. This was treated with incision and drainage. Some residual cyst is present. Patient also has a 2 cm cyst in the left upper back and a 3 x 5 Center lipoma in the right lower back. Here for excision of these lesions. 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 Migraines, heart murmur, varicose veins, constipation(subsided since hernia surgery), gallstones. Hx ovarian cancer(in remission), lymph node removed from left side of neck. Being monitored for lesion on kidney. History of Any Multi-Drug Resistant Organisms: None Reported Past Surgical History: Adenoidectomy, Bladder Surgery, Bowel Resection, Hernia Repair, Hysterectomy, Tonsillectomy Additional Past Surgical History / Comment(s): Multiple eye surgeries, bilateral cataract surgery, surgery for detatched retina right eye, blebs removed from bilateral eyes, bladder suspension X2, hernia repair with 3 feet of bowel removed. Past Anesthesia/Blood Transfusion Reactions: Previous Problems w/ Anesthesia Additional Past Anesthesia/Blood Transfusion Reaction / Comment(s): States "stopped breathing when in recovery for 2nd bladder suspension." No problems since. Past Psychological History: No Psychological Hx Reported Smoking Status: Former smoker Past Alcohol Use History: None Reported Additional Past Alcohol Use History / Comment(s): Started smoking in the 1980s, <1ppd, quit 02-16-17. Past Drug Use History: None Reported - Past Family History Mother Family Medical History: Deep Vein Thrombosis (DVT) Father Family Medical History: CVA/TIA Medications and Allergies Home Medications Medication Instructions Recorded Confirmed Type Albuterol Sulfate [Proair Hfa] 2 puff INHALATION Q4H PRN 02/21/17 02/24/22 History Ipratropium-Albuterol Nebulize 3 ml INHALATION QID 02/21/17 02/24/22 History [Duoneb 0.5 mg-3 mg/3 ml Soln] Ipratropium [place] [Atrovent Hfa] 2 puff INHALATION BID 02/27/22 06/08/22 History Levothyroxine Sodium [Synthroid] 88 mcg PO QAM 11/15/21 02/24/22 History Fluticasone/Salmeterol [Advair 1 inhalation PO BID 02/24/22 02/24/22 History 500-50 Diskus] Allergies Allergy/AdvReac Type Severity Reaction Status Date / Time clindamycin AdvReac Nausea & Verified 02/24/22 12:18 Vomiting & Diarrhea morphine AdvReac states Verified 02/24/22 12:18 "b/p went low" Surgical - Exam Physical exam: General: Well-developed, well-nourished HEENT: Normocephalic, sclerae nonicteric Abdomen: Nontender, nondistended Extremities: No edema Neuro: Alert and oriented Back: 2 cm sebaceous cyst left upper, 1-2 cm cyst right upper back at previous abscess site, 3 x 5 cm right lower back lipomatous mass Assessment and Plan (1) Sebaceous cyst Narrative/Plan: 51-year-old female with symptomatically sebaceous cyst and lipoma we'll proceed with surgical excision. Risks of bleeding, infection, scarring, recurrence reviewed. She understands and wishes to proceed. Current Visit: Yes Status: Acute Code(s): L72.3 - SEBACEOUS CYST SNOMED Code(s): 487842063
[2022-02-26] MEDS ORDERED: SUCCINYLCHOLINE CHLORIDE VIAL 200 MG/10 ML VIAL IV ONE (09:05)
[2022-02-26] MEDS ORDERED: DEXAMETHASONE SOD PHOSPHATE 10 MG/ML 1 ML VIAL ONE (09:05)
[2022-02-26] MEDS ORDERED: PROPOFOL 10 MG/ML 20 ML VIAL IV ONE (09:05)
[2022-02-26] MEDS ORDERED: fentaNYL (PF) 50 MCG/ML 2 ML AMP ONE (09:05)
[2022-02-26] MEDS ORDERED: GLYCOPYRROLATE 0.2 MG/ML 2 ML VIAL ONE (09:05)
[2022-02-26] MEDS ORDERED: MIDAZOLAM 2 MG/2 ML VIAL ONE (09:05)
[2022-02-26] MEDS ORDERED: LIDOCAINE 2% INJ 20 MG/ML (2 ML VIAL) ONE (09:05)
[2022-02-26] MEDS ORDERED: BUPIVACAIN-EPI 0.25%-1:200,000 30 ML VIAL SQ ONE (09:49)
[2022-02-26] MEDS ORDERED: NALOXONE 0.4 MG/ML 1 ML VIAL IV PRN (10:43)
[2022-02-26] MEDS ORDERED: HYDROcodone/APAP 5-325MG 1 EACH TAB PO PRN (10:44)
[2022-02-26 10:46] VITALS: RESP 16; TEMP 97
--- NOTE | 2022-02-26 10:49 | P.OP ---
Date of Procedure: 02/26/22 Procedure(s) Performed: PREOPERATIVE DIAGNOSIS: Sebaceous cyst right upper back, left upper back, and lipoma right lower back POSTOPERATIVE DIAGNOSIS: Same PROCEDURE: Excision above lesions with intermediate closure SURGEON: Miguel A EBL: Chip Villafuerte ANESTHESIA: Gen. COMPLICATIONS: None OPERATIVE PROCEDURE: Patient placed under general anesthesia and then placed in the left decubitus position. The back was prepped and draped sterilely. The lipoma was first addressed. This was present in the right lower back region. A longitudinal incision was made overlying the mass. Subcutaneous tissues were divided using electrocautery. Mass was easily excised using both blunt dissection and cautery. This measured 5 x 3 cm. Area was inspected for bleeding. None was seen. The subcutaneous tissues were reapproximated using 3- 0 Vicryl sutures and the skin using a running 4-0 Monocryl suture. Length of closure 5 cm. The left upper back sebaceous cyst was then addressed. An elliptical incision was made overlying the puncta. The subcutaneous tissues were divided using sharp dissection. The cyst was fully excised in one piece. The subcutaneous tissues were inspected for bleeding and none was seen. The subcutaneous tissues were then reapproximated using 3-0 Vicryl sutures and the skin using interrupted 4-0 Monocryl sutures. Length of closure 3 cm. The right upper back sebaceous cyst site was then addressed. An elliptical incision was made around the area of induration. The saphenous tissues were divided using electrocautery. The cyst with the associated surrounding inflammation was fully excised. Subcutaneous tissues were closed using 3-0 Vicryl sutures. Skin was closed using running 4-0 nylon suture. Length of closure 5 cm. Skin glue was applied to the subcuticular closure sites. Sterile dressings were applied all 3 sites. DISPOSITION: Stable to recovery room
[2022-02-26 11:49] VITALS: BP 117/77; PULSE 88
== END 2022-02-26 12:22 | disposition home or self-care (01) ==
LOC: OR 07:43
PROVIDERS: ATTEND Surgery
DX: L72.0 Epidermal cyst (principal); D17.1 Benign lipomatous neoplasm of skin and subcutaneous tissue of trunk; J44.9 Chronic obstructive pulmonary disease, unspecified; Z88.1 Allergy status to other antibiotic agents; Z88.5 Allergy status to narcotic agent; G43.909 Migraine, unspecified, not intractable, without status migrainosus; Z90.49 Acquired absence of other specified parts of digestive tract; Z90.710 Acquired absence of both cervix and uterus; Z87.891 Personal history of nicotine dependence; Z85.43 Personal history of malignant neoplasm of ovary; Z86.718 Personal history of other venous thrombosis and embolism; H54.62 Unqualified visual loss, left eye, normal vision right eye; K21.9 Gastro-esophageal reflux disease without esophagitis; Z79.51 Long term (current) use of inhaled steroids; K43.2 Incisional hernia without obstruction or gangrene; K81.1 Chronic cholecystitis; E07.9 Disorder of thyroid, unspecified
CPT/HCPCS: 21931; 12032; 11406; 11403; 88304; J2250; J0330; J1100 ×2; J0690; J2405; J3010; J2704; J1644; J2001; 88305

== ENCOUNTER → 2022-07-05 | Outpatient (CLI) | payer BC, MEDICARE | END | disposition home or self-care (01) | LOC: LABWHC1 14:56 | PROVIDERS: ATTEND Internal Medicine Endocrinology, Diabetes & Metabolism | DX: E03.8 Other specified hypothyroidism (principal) | CPT/HCPCS: 36415; 84443 ==

== ENCOUNTER 2024-07-18 13:46 | Inpatient (IN) | payer BC, MEDICARE ==
[2024-07-18] MEDS: KETOROLAC 15 MG/ML 1 ML VIAL IVP STA (14:31)
--- NOTE | 2024-07-18 14:31 | ED ---
Abdominal Pain HPI - General Chief Complaint: Abdominal Pain Stated Complaint: abd pain Time Seen by Provider: 07/18/24 14:06 Source: patient, family, RN notes reviewed Mode of arrival: ambulatory Limitations: no limitations - History of Present Illness Initial Comments: 54-year-old female presenting to the ER with abdominal pain x 1 day. States yesterday she began to feel what she thought was gas in the middle of her abdomen. States pain has progressed and described as intermittent right lower quadrant cramping that she states feels like contractions. Pain radiates to the back. She also reports that over the past 2 days her stools have been very light in color but are normal in consistency. Last bowel movement was this morning. Admits nausea but denies vomiting, fevers. States last week she was experiencing urinary frequency however those symptoms resolved. She does have an extensive abdominal surgical history including hernia repair with Dr. Grady and "twisting of her bowels". The hernia returned as Dr. Grady was unable to use mesh during surgery. She does have a history of colon cancer and states she missed her scheduled colonoscopy last year due to her mother passing away. She has a history of gallstones and a hysterectomy. Denies blood thinners. - Related Data Home Medications Medication Instructions Recorded Confirmed Albuterol Sulfate [Proair Hfa] 2 puff INHALATION RT-Q6H PRN 02/21/17 07/18/24 Ipratropium-Albuterol Nebulize 3 ml INHALATION RT-QID PRN 02/21/17 07/18/24 [Duoneb 0.5 mg-3 mg/3 ml Soln] Fluticasone Propion/Salmeterol 1 puff INHALATION RT-BID 02/24/22 07/18/24 [Advair 500-50 Diskus] Ibuprofen [Motrin Ib] 600 mg PO Q6H PRN 07/18/24 07/18/24 Levothyroxine Sodium [Synthroid] 100 mcg PO DAILY 07/18/24 07/18/24 Tiotropium 2.5 Mcg/Puff [Spiriva 1 puff INHALATION RT-BID 07/18/24 07/18/24 Respimat 2.5 Mcg] prednisoLONE ACETATE 1% OPHTH 1 drop LEFT EYE HS 07/18/24 07/18/24 [Pred Forte 1%] prednisoLONE ACETATE 1% OPHTH 1 drop LEFT EYE TID PRN 07/18/24 07/18/24 [Pred Forte 1%] Allergies Allergy/AdvReac Type Severity Reaction Status Date / Time clindamycin Allergy itchy Verified 07/18/24 17:21 throat morphine AdvReac states Verified 07/18/24 17:21 "b/p went low" Review of Systems ROS Statement: Those systems with pertinent positive or pertinent negative responses have been documented in the HPI. ROS Other: All systems not noted in ROS Statement are negative. 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 Migraines, heart murmur, varicose veins, constipation(subsided since hernia surgery), gallstones. Hx ovarian cancer(in remission), lymph node removed from left side of neck. Being monitored for lesion on kidney. History of Any Multi-Drug Resistant Organisms: None Reported Past Surgical History: Adenoidectomy, Bladder Surgery, Bowel Resection, Hernia Repair, Hysterectomy, Tonsillectomy Additional Past Surgical History / Comment(s): Multiple eye surgeries, bilateral cataract surgery, surgery for detatched retina right eye, blebs removed from bilateral eyes, bladder suspension X2, hernia repair with 3 feet of bowel removed. Past Anesthesia/Blood Transfusion Reactions: Previous Problems w/ Anesthesia Additional Past Anesthesia/Blood Transfusion Reaction / Comment(s): States "stopped breathing when in recovery for 2nd bladder suspension." No problems since. Past Psychological History: No Psychological Hx Reported Smoking Status: Former smoker Past Alcohol Use History: None Reported Past Drug Use History: None Reported - Past Family History Mother Family Medical History: Deep Vein Thrombosis (DVT) Father Family Medical History: CVA/TIA General Exam Limitations: no limitations General appearance: alert, in no apparent distress Head exam: Present: atraumatic, normocephalic, normal inspection Respiratory exam: Present: normal lung sounds bilaterally. Absent: respiratory distress, wheezes, rales, rhonchi, stridor Cardiovascular Exam: Present: regular rate, normal rhythm, normal heart sounds. Absent: systolic murmur, diastolic murmur, rubs, gallop, clicks GI/Abdominal exam: Present: soft, tenderness (Right lower quadrant tenderness to palpation), normal bowel sounds. Absent: distended, guarding, rebound, rigid Back exam: Present: normal inspection. Absent: CVA tenderness (R), CVA tenderness (L) Neurological exam: Present: alert, oriented X3 Psychiatric exam: Present: normal affect, normal mood Skin exam: Present: warm, dry, intact, normal color. Absent: rash Course Vital Signs 07/18/24 07/18/24 07/18/24 13:48 17:21 18:21 Temperature 98.5 F 98.8 F Pulse Rate 91 72 64 Respiratory 18 18 18 Rate Blood Pressure 152/75 124/75 124/77 O2 Sat by Pulse 98 100 99 Oximetry Medical Decision Making - Medical Decision Making Was pt. sent in by a medical professional or institution (, [facility], APPLICATION OPERATIONS ENGINEER, urgent care, hospital, or shelter...) When possible be specific @ -No Did you speak to anyone other than the patient for history (EMS, parent, family, police, friend...)? What history was obtained from this source @ -No Did you review nursing and triage notes (agree or disagree)? Why? @ -I reviewed and agree with nursing and triage notes Were old charts reviewed (outside hosp., previous admission, EMS record, old EKG, old radiological studies, urgent care reports/EKG's, shelter records)? Report findings @ -No old charts were reviewed Differential Diagnosis (chest pain, altered mental status, abdominal pain women, abdominal pain men, vaginal bleeding, weakness, fever, dyspnea, syncope, headache, dizziness, GI bleed, back pain, seizure, CVA, palpatations, mental health, musculoskeletal)? @ -Differential Abdominal Pain Women: Appendicitis, Cholecystitis, diverticulosis, ischemic bowel, pancreatitis, hepatitis, UTI, gastroenteritis, AAA, incarcerated hernia, bowel obstruction, constipation, inflammatory bowel, hepatitis, peptic ulcer disease, splenic infarction, perforated viscus, vulvitis, ovarian torsion, PID, kidney stone, nancy centa abruption, this is not meant to be an all-inclusive list EKG interpreted by me (3pts min.). @ -None X-rays interpreted by me (1pt min.). @ -None done CT interpreted by me (1pt min.). @ -CT abdomen pelvis revealed anterior pelvic wall hernia containing multiple dilated fluid-filled loops of bowel, partial small bowel obstruction suspected U/S interpreted by me (1pt. min.). @ -None done What testing was considered but not performed or refused? (CT, X-rays, U/S, labs)? Why? @ -None What meds were considered but not given or refused? Why? @ -Patient declines narcotics today Did you discuss the management of the patient with other professionals (professionals i.e. Dr., PA, APPLICATION OPERATIONS ENGINEER, lab, RT, psych nurse, executive secretary social welfare, technical support internship, teacher, truant officer, residential case manager)? Give summary @ -I spoke with Elif from [facility] for admission with consultation to Dr. Grady Was smoking cessation discussed for >3mins.? @ - No Was critical care preformed (if so, how long)? @ -No Were there social determinants of health that impacted care today? How? (Homelessness, low income, unemployed, alcoholism, drug addiction, transportation, low edu. Level, literacy, decrease access to med. care, fpc, rehab)? @ -No Was there de-escalation of care discussed even if they declined (Discuss DNR or withdrawal of care, Hospice)? DNR status @ -No What co-morbidities impacted this encounter? (DM, HTN, Smoking, COPD, CAD, Cancer, CVA, ARF, Chemo, Hep., AIDS, mental health diagnosis, sleep apnea, morbid obesity)? @ -None Was patient admitted / discharged? Hospital course, mention meds given and route, prescriptions, significant lab abnormalities, going to OR and other pertinent info. @ -Admitted. This is a 54-year-old female presenting to the ER with chief complaint of right lower quadrant abdominal pain x 1 day. Vital signs are within acceptable limits. There is right lower quadrant tenderness to palpation. Patient was provided with IV fluids, analgesics, and antiemetics. Lab work including CBC, CMP, lipase, lactic acid unremarkable. Urinalysis largely unremarkable. CT abdomen pelvis with contrast reveals anterior pelvic wall hernia containing multiple dilated fluid-filled loops of bowel with partial small bowel obstruction. Results discussed with patient. I spoke with Elif from [facility] for admission with consultation to Dr. Grady. Undiagnosed new problem with uncertain prognosis? @ -No Drug Therapy requiring intensive monitoring for toxicity (Heparin, Nitro, Insulin, Cardizem)? @ -No Were any procedures done? @ -No Diagnosis/symptom? @ -Small bowel obstruction Acute, or Chronic, or Acute on Chronic? @ -Acute Uncomplicated (without systemic symptoms) or Complicated (systemic symptoms)? @ -Uncomplicated Side effects of treatment? @ -No Exacerbation, Progression, or Severe Exacerbation? @ -No Poses a threat to life or bodily function? How? (Chest pain, [place], [place], pneumonia, PE, COPD, DKA, ARF, appy, cholecystitis, CVA, Diverticulitis, Homicidal, Suicidal, threat to staff... and all critical care pts) @ -Yes - Lab Data Result diagrams: 07/18/24 14:29 07/18/24 14:29 Lab Results 07/18/24 07/18/24 07/18/24 Range/Units 14:29 14:29 14:29 WBC 11.1 H (3.8-10.6) k/uL RBC 4.84 (3.80-5.40) m/uL Hgb 12.9 (11.4-16.0) gm/dL Hct 41.5 (34.0-46.0) % MCV 85.7 (80.0-100.0) fL MCH 26.7 (25.0-35.0) pg MCHC 31.1 (31.0-37.0) g/dL RDW 14.1 (11.5-15.5) % Plt Count 296 (150-450) k/uL MPV 7.4 Neutrophils % 78 % Lymphocytes % 12 % Monocytes % 7 % Eosinophils % 2 % Basophils % 0 % Neutrophils # 8.6 H (1.3-7.7) k/uL Lymphocytes # 1.3 (1.0-4.8) k/uL Monocytes # 0.8 (0-1.0) k/uL Eosinophils # 0.2 (0-0.7) k/uL Basophils # 0.0 (0-0.2) k/uL PT 10.5 (10.0-12.5) sec INR 0.9 (<1.2) APTT 24.3 (22.0-30.0) sec Sodium 140 (137-145) mmol/L Potassium 4.3 (3.5-5.1) mmol/L Chloride 107 (98-107) mmol/L Carbon Dioxide 23 (22-30) mmol/L Anion Gap 10 mmol/L BUN 16 (7-17) mg/dL Creatinine 0.53 (0.52-1.04) mg/dL Est GFR (CKD-EPI)AfAm >90 (>60 ml/min/1.73 sqM) Est GFR (CKD-EPI)NonAf >90 (>60 ml/min/1.73 sqM) Glucose 99 (74-99) mg/dL Plasma Lactic Acid Boyd (0.7-2.0) mmol/L Calcium 9.4 (8.4-10.2) mg/dL Total Bilirubin 1.1 (0.2-1.3) mg/dL AST 24 (14-36) U/L ALT 26 (4-34) U/L Alkaline Phosphatase 69 (38-126) U/L Total Protein 7.1 (6.3-8.2) g/dL Albumin 4.3 (3.5-5.0) g/dL Lipase 60 (23-300) U/L Urine Color Urine Appearance (Clear) Urine pH (5.0-8.0) Ur Specific [place] (1.001-1.035) Urine Protein (Negative) Urine Glucose (UA) (Negative) Urine Ketones (Negative) Urine Blood (Negative) Urine Nitrite (Negative) Urine Bilirubin (Negative) Urine Urobilinogen (<2.0) mg/dL Ur Leukocyte Esterase (Negative) Urine RBC (0-5) /hpf Urine WBC (0-5) /hpf Ur Squamous Epith Cells (0-4) /hpf Urine Mucus (None) /hpf 07/18/24 07/18/24 Range/Units 14:29 15:07 WBC (3.8-10.6) k/uL RBC (3.80-5.40) m/uL Hgb (11.4-16.0) gm/dL Hct (34.0-46.0) % MCV (80.0-100.0) fL MCH (25.0-35.0) pg MCHC (31.0-37.0) g/dL RDW (11.5-15.5) % Plt Count (150-450) k/uL MPV Neutrophils % % Lymphocytes % % Monocytes % % Eosinophils % % Basophils % % Neutrophils # (1.3-7.7) k/uL Lymphocytes # (1.0-4.8) k/uL Monocytes # (0-1.0) k/uL Eosinophils # (0-0.7) k/uL Basophils # (0-0.2) k/uL PT (10.0-12.5) sec INR (<1.2) APTT (22.0-30.0) sec Sodium (137-145) mmol/L Potassium (3.5-5.1) mmol/L Chloride (98-107) mmol/L Carbon Dioxide (22-30) mmol/L Anion Gap mmol/L BUN (7-17) mg/dL Creatinine (0.52-1.04) mg/dL Est GFR (CKD-EPI)AfAm (>60 ml/min/1.73 sqM) Est GFR (CKD-EPI)NonAf (>60 ml/min/1.73 sqM) Glucose (74-99) mg/dL Plasma Lactic Acid Boyd 0.8 (0.7-2.0) mmol/L Calcium (8.4-10.2) mg/dL Total Bilirubin (0.2-1.3) mg/dL AST (14-36) U/L ALT (4-34) U/L Alkaline Phosphatase (38-126) U/L Total Protein (6.3-8.2) g/dL Albumin (3.5-5.0) g/dL Lipase (23-300) U/L Urine Color Light Yellow Urine Appearance Clear (Clear) Urine pH 5.0 (5.0-8.0) Ur Specific [place] 1.018 (1.001-1.035) Urine Protein Negative (Negative) Urine Glucose (UA) Negative (Negative) Urine Ketones Trace H (Negative) Urine Blood Negative (Negative) Urine Nitrite Negative (Negative) Urine Bilirubin Negative (Negative) Urine Urobilinogen <2.0 (<2.0) mg/dL Ur Leukocyte Esterase Small H (Negative) Urine RBC <1 (0-5) /hpf Urine WBC 2 (0-5) /hpf Ur Squamous Epith Cells 4 (0-4) /hpf Urine Mucus Moderate H (None) /hpf Disposition Clinical Impression: Small bowel obstruction Disposition: ADMITTED IP TO THIS [facility] Time of Disposition: 17:09
[2024-07-18] MEDS: SODIUM CHLORIDE 0.9% 1,000 ML IV STA (14:32)
[2024-07-18] MEDS: ONDANSETRON 4 MG/2 ML VIAL IVP STA (14:32)
[2024-07-18 14:51] LABS: Basophils % (A) 0 %; Eosinophils # (A) 0.2 k/uL (0-0.7); Eosinophils % (A) 2 %; HCT 41.5 % (34.0-46.0); HGB 12.9 gm/dL (11.4-16.0); Lymphocytes # (A) 1.3 k/uL (1.0-4.8); Lymphocytes % (A) 12 %; MCH 26.7 pg (25.0-35.0); MCHC 31.1 g/dL (31.0-37.0); MCV 85.7 fL (80.0-100.0); Mean Platelet Volume 7.4; Monocytes # (A) 0.8 k/uL (0-1.0); Monocytes % (A) 7 %; Neutrophils # (A) 8.6 k/uL (1.3-7.7); Neutrophils % (A) 78 %; Platelet Count 296 k/uL (150-450); RBC 4.84 m/uL (3.80-5.40); RDW 14.1 % (11.5-15.5); WBC 11.1 k/uL (3.8-10.6)
[2024-07-18 15:04] LABS: INR 0.9 (<1.2); Partial Thromboplastin Time 24.3 sec (22.0-30.0); Prothrombin Time 10.5 sec (10.0-12.5)
[2024-07-18 15:07] LABS: ALT 26 U/L (4-34); AST 24 U/L (14-36); African American GFR (CKD) >90 (>60 ml/min/1.73 sqM); Albumin 4.3 g/dL (3.5-5.0); Alkaline Phosphatase 69 U/L (38-126); Anion Gap 10 mmol/L; Blood Urea Nitrogen 16 mg/dL (7-17); Calcium 9.4 mg/dL (8.4-10.2); Carbon Dioxide 23 mmol/L (22-30); Chloride 107 mmol/L (98-107); Glucose 99 mg/dL (74-99); Lipase 60 U/L (23-300); Non-African American GFR(CKD) >90 (>60 ml/min/1.73 sqM); Potassium 4.3 mmol/L (3.5-5.1); Sodium 140 mmol/L (137-145); Total Bilirubin 1.1 mg/dL (0.2-1.3); Total Protein 7.1 g/dL (6.3-8.2)
[2024-07-18 15:20] LABS: Appearance,Urine Clear (Clear); Bilirubin,Urine Negative (Negative); Blood,Urine Negative (Negative); Color,Urine Light Yellow; Glucose,Urine (UA) Negative (Negative); Ketones,Urine Trace (Negative); Leukocyte Esterase,Urine Small (Negative); Mucus,Urine Moderate /hpf; Nitrite,Urine Negative (Negative); Protein,Urine Negative (Negative); RBC,Urine <1 /hpf (0-5); Specific Gravity,Urine 1.018 (1.001-1.035); Squamous Epithelial Cell,Urine 4 /hpf (0-4); Urobilinogen,Urine <2.0 mg/dL (<2.0); WBC,Urine 2 /hpf (0-5)
--- NOTE | 2024-07-18 16:43 | CT ---
EXAMINATION TYPE: CT abdomen pelvis w con DATE OF EXAM: 07/18/2024 COMPARISON: 11/15/2021 INDICATION: abd pain/ hx twisted bowel DLP: 1578.8 mGycm, Automated exposure control for dose reduction was used. CONTRAST: 100ml mL of Isovue 370. Study performed without Oral Contrast TECHNIQUE: Axial images were obtained from above the diaphragm to the pubic rami in the axial plane a t 5 mm thick sections. Reconstructed images are reviewed on the computer in the coronal plane. FINDINGS: Limited CT sections are obtained the lung bases. The lung bases are clear. CT ABDOMEN: There is an anterior pelvic wall hernia with multiple dilated loops of bowel present incl uding anastomosis within a loop of involved bowel. Air-fluid levels are present. The distal colon keren ears decompressed. Findings appear suggestive for partial small bowel obstruction Liver: Normal Spleen: Normal Pancreas: Normal Adrenal glands: The adrenal glands are normal. Gallbladder: Multiple gallstones fill the gallbladder. Kidneys: No masses are evident. No hydronephrosis is present. No cysts are present. Delayed images were obtained through the kidneys, which remain unremarkable. Aorta: Vascular calcification is within the aorta. Inferior vena cava: Normal. CT PELVIS: Loops of bowel within the abdomen and pelvis are normal. There are loops of bowel which are incom pletely distended or lack oral contrast limiting their evaluation. Appendix: Not identified. No dilated tubular structure or inflammatory change is evident. Urinary bladder: Normal. Genitourinary structures: Uterus and ovaries are not identified. Osseous structures: No suspicious lytic or sclerotic lesions. IMPRESSION: 1. Anterior pelvic wall hernia containing multiple dilated fluid-filled loops of bowel. Partial smal l bowel obstruction is suspected. Report was called to the emergency room PA by Dr. Soto by teleph one at the time of interpretation. [facility], Workstation: [email or web address], 07/18/2024 4:40 PM
[2024-07-18] MEDS ORDERED: NALOXONE 0.4 MG/ML 1 ML VIAL IV PRN (17:07)
[2024-07-18] MEDS ORDERED: ONDANSETRON 4 MG/2 ML VIAL IVP PRN (17:07)
[2024-07-18] MEDS: SODIUM CHLORIDE 0.9% 1,000 ML IV SCH (17:17)
[2024-07-19] MEDS: KETOROLAC 15 MG/ML 1 ML VIAL IVP PRN (09:06)
[2024-07-19] MEDS: SODIUM CHLORIDE 0.9% 1,000 ML IV SCH (09:06)
[2024-07-19] MEDS ORDERED: IPRATROPIUM-ALBUTEROL 3 ML NEB INHALATION PRN (10:17)
[2024-07-19] MEDS ORDERED: ALBUTEROL HFA INHALER INHALATION PRN (10:17)
[2024-07-19] MEDS ORDERED: NALOXONE 0.4 MG/ML 1 ML VIAL IV PRN (10:18)
[2024-07-19] MEDS: IPRATROPIUM 0.5 MG/2.5 ML NEBU INHALATION SCH (12:03)
--- NOTE | 2024-07-19 14:28 | P.HPIM ---
History of Present Illness H&P Date: 07/19/24 History of present illness; 54-year-old lady with past medical history significant for hypothyroidism, COPD, multiple bowel surgery who presented to the ER because of abdominal pain. Patient said that she was all right 1 day back when she started noticing abdominal pain. Abdominal pain was central in location, felt as if she had gas stuck there, initially pain was intermittent but later became constant, not associated with any aggravating or relieving factor. Patient was having nausea but no vomiting. 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 Because of worsening abdominal pain, patient came to the ER Initial lab work done in the ER showed CBC 9.1, hemoglobin 12.9, platelet count 296, sodium 140, potassium 4.3, BUN 13, creatinine 0.53, AST 24, ALT 26, UA negative for any infection CT abdomen and pelvis done showed anterior pelvic wall hernia containing multiple dilated fluid-filled loops of bowel, partial small bowel bowel obst ruction is suspected Patient admitted to internal medicine service REVIEW OF SYSTEMS: CONSTITUTIONAL: No fever, no malaise, no fatigue. HEENT: No recent visual problems or hearing problems. Denied any sore throat. CARDIOVASCULAR: No chest pain, orthopnea, PND, no palpitations, no syncope. PULMONARY: No shortness of breath, no cough, no hemoptysis. GASTROINTESTINAL: As mentioned above NEUROLOGICAL: No headaches, no weakness, no numbness. HEMATOLOGICAL: Denies any bleeding or petechiae. GENITOURINARY: Denies any burning micturition, frequency, or urgency. MUSCULOSKELETAL/RHEUMATOLOGICAL: Denies any joint pain, swelling, or any muscle pain. ENDOCRINE: Denies any polyuria or polydipsia. The rest of the 14-point review of systems is negative. PHYSICAL EXAMINATION: GENERAL: The patient is alert and oriented x3, not in any acute distress. Well developed, well nourished. HEENT: Pupils are round and equally reacting to light. EOMI. No scleral icterus. No conjunctival pallor. Normocephalic, atraumatic. No pharyngeal erythema. No thyromegaly. CARDIOVASCULAR: S1 and S2 present. No murmurs, rubs, or gallops. PULMONARY: Chest is clear to auscultation, no wheezing or crackles. ABDOMEN: Soft, nontender, nondistended, bowel sounds absent MUSCULOSKELETAL: No joint swelling or deformity. EXTREMITIES: No cyanosis, clubbing, or pedal edema. NEUROLOGICAL: Gross neurological examination did not reveal any focal deficits. SKIN: No rashes. Assessment and plan Small bowel obstruction Anterior pelvic wall hernia History of hypothyroidism COPD Monitor vital signs Monitor CBC Monitor CMP Continue telemetry monitoring Strict n.p.o. Ordered IV fluids Ordered antiemetics Ordered pain management Resume home med Consult surgery Labs and medication were reviewed.. Continue same treatment. Continue with symptomatic treatment. Resume home medication. Monitor labs and vitals. DVT and GI prophylaxis. Further recommendations as per clinical course of the patient Dictation was produced using [employer] dictation software. please excuse any grammatical, word or spelling errors. 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 Migraines, heart murmur, varicose veins, constipation(subsided since hernia surgery), gallstones. Hx ovarian cancer(in remission), lymph node removed from left side of neck. Being monitored for lesion on kidney. History of Any Multi-Drug Resistant Organisms: None Reported Past Surgical History: Adenoidectomy, Bladder Surgery, Bowel Resection, Hernia Repair, Hysterectomy, Tonsillectomy Additional Past Surgical History / Comment(s): Multiple eye surgeries, bilateral cataract surgery, surgery for detatched retina right eye, blebs removed from bilateral eyes, bladder suspension X2, hernia repair with 3 feet of bowel removed. Past Anesthesia/Blood Transfusion Reactions: Previous Problems w/ Anesthesia Additional Past Anesthesia/Blood Transfusion Reaction / Comment(s): States "stopped breathing when in recovery for 2nd bladder suspension." No problems since. Past Psychological History: No Psychological Hx Reported Smoking Status: Former smoker Past Alcohol Use History: None Reported Past Drug Use History: None Reported - Past Family History Mother Family Medical History: Deep Vein Thrombosis (DVT) Father Family Medical History: CVA/TIA Medications and Allergies Home Medications Medication Instructions Recorded Confirmed Type Albuterol Sulfate [Proair Hfa] 2 puff INHALATION RT-Q6H PRN 02/21/17 07/18/24 History Ipratropium-Albuterol Nebulize 3 ml INHALATION RT-QID PRN 02/21/17 07/18/24 History [Duoneb 0.5 mg-3 mg/3 ml Soln] Fluticasone Propion/Salmeterol 1 puff INHALATION RT-BID 02/24/22 07/18/24 History [Advair 500-50 Diskus] Ibuprofen [Motrin Ib] 600 mg PO Q6H PRN 07/18/24 07/18/24 History Levothyroxine Sodium [Synthroid] 100 mcg PO DAILY 07/18/24 07/18/24 History Tiotropium 2.5 Mcg/Puff [Spiriva 1 puff INHALATION RT-BID 07/18/24 07/18/24 History Respimat 2.5 Mcg] prednisoLONE ACETATE 1% OPHTH 1 drop LEFT EYE HS 07/18/24 07/18/24 History [Pred Forte 1%] prednisoLONE ACETATE 1% OPHTH 1 drop LEFT EYE TID PRN 07/18/24 07/18/24 History [Pred Forte 1%] Allergies Allergy/AdvReac Type Severity Reaction Status Date / Time clindamycin Allergy itchy Verified 07/18/24 17:21 throat morphine AdvReac states Verified 07/18/24 17:21 "b/p went low" Physical Exam Vitals: Vital Signs Temp Pulse Pulse Resp BP BP Pulse Ox 07/19/24 07:00 96.3 F L 67 15 110/60 97 07/19/24 01:44 98.3 F 70 18 104/66 96 07/18/24 19:56 98.9 F 72 18 146/65 96 07/18/24 18:21 98.8 F 64 18 124/77 99 07/18/24 17:21 72 18 124/75 100 07/18/24 13:48 98.5 F 91 18 152/75 98 Intake and Output 07/18/24 07/19/24 07/19/24 22:59 06:59 14:59 Intake Total 0 Balance 0 Intake: Oral 0 Other: # Voids 1 2 Weight 111.13 kg Results CBC & Chem 7: 07/18/24 14:29 07/18/24 14:29 Labs: Abnormal Lab Results - Last 24 Hours (Table) 07/18/24 07/18/24 Range/Units 14:29 15:07 WBC 11.1 H (3.8-10.6) k/uL Neutrophils # 8.6 H (1.3-7.7) k/uL Urine Ketones Trace H (Negative) Ur Leukocyte Esterase Small H (Negative) Urine Mucus Moderate H (None) /hpf Thrombosis Risk Factor Assmnt - Choose All That Apply Any of the Below Risk Factors Present?: Yes Each Factor Represents 1 point: Age 41-60 years, Obesity (BMI >25) Thrombosis Risk Factor Assessment Total Risk Factor Score: 2 Thrombosis Risk Factor Assessment Level: Low Risk
--- NOTE | 2024-07-19 15:14 | P.GSCN ---
History of Present Illness Consult date: 07/19/24 History of present illness: CHIEF COMPLAINT: Abdominal pain HISTORY OF PRESENT ILLNESS: This is a 54-year-old female who presented the hospital with complaints of abdominal pain x 2 days. Patient reports the pain is located on the right side of the umbilicus and to the right of her abdominal incision. She does report nausea no vomiting. Her stools have been light in color. Last bowel movement was yesterday. She currently denies any flatus. The pain comes in waves and feels like contractions. Patient reports the nausea is doing better. Patient's past surgical history includes an incarcerated incisional hernia status post repair with small bowel obstruction and lysis of adhesions in October 2021. She also has a history of a hysterectomy and oophorectomy for ovarian cancer and 2 bladder suspensions. Patient reports that she has had this hernia for a while and is watching it. She reports that usually as the day goes on her umbilicus protrudes and the area around the umbilicus also protrudes and then it reduces on its own. Patient had a CT scan abdomen pelvis that had reported anterior pelvic wall hernia containing bowel with a partial small bowel obstruction suspected. PAST MEDICAL HISTORY: See below PAST SURGICAL HISTORY: See below MEDICATIONS: See below ALLERGIES: See below SOCIAL HISTORY: No illicit drug use. REVIEW OF SYSTEMS: CONSTITUTIONAL: Denies fever or chills. HEENT: Denies blurred vision, vision changes, or eye pain. Denies hemoptysis CARDIOVASCULAR: Denies chest pain or pressure. RESPIRATORY: No shortness of breath. GASTROINTESTINAL: See HPI for pertinent findings HEMATOLOGIC: Denies bleeding disorders. GENITOURINARY: Denies any blood in urine or increased urinary frequency. SKIN: Denies pruitis. Denies rash. PHYSICAL EXAM: VITAL SIGNS: Reviewed GENERAL: Well-developed in no acute distress. HEENT: No sclera icterus. Extraocular movements grossly intact. Moist buccal mucosa. Head is atraumatic, normocephalic. No nasal drainage. ABDOMEN: Soft. obese. Tenderness with palpation of the umbilicus into the right of the umbilicus. No hernia or bulge noted at this time. NEUROLOGIC: Alert and oriented. Cranial nerves II through XII grossly intact. LABORATORY DATA: WBC 11.1 Hgb 12.9 platelets 296 Sodium 140 potassium 4.3 creatinine 0.53 Lactic acid 0.8 IMAGING: CT scan abdomen pelvis reports anterior pelvic wall hernia containing multiple dilated fluid loops of bowel. Partial small bowel obstruction is suspected. ASSESSMENT: 1. Possible partial small bowel obstruction with anterior pelvic wall hernia containing dilated loops of bowel on CT 2. History of incarcerated incisional hernia status post repair, small bowel resection and lysis of adhesions in 2021 3. Obesity PLAN: -Patient's nausea and pain have improved. Start a full liquid diet -Continue to monitor -Patient will likely need to be seen by hernia specialist for hernia repair Physician Undercover Operator note has been reviewed by physician. Signing provider agrees with the documented findings, assessment, and plan of care. I have personally seen and examined the patient, reviewed the MANAGER MACHINE /PAs history, exam and MDM and agree with the assessment and plan as written. Based on total visit time, I have performed more than 50% of the visit. As above: Patient with recurrent hernia and underlying morbid obesity. Patient I discussed in the office outpatient setting previously that she was high risk for hernia repair. Now the fascial defect on CAT scan is approximately 9 cm wide and there are 2 or 3 separate defects present in that area. Recommend Keshawn repair with possible transversus abdominis release. Ideally this will occur after further weight loss. Patient states she is still considering bariatric hig[place] rgery as she has tried recent GLP-1 agonist without lasting success. Currently it seems that the hernias have been reduced. I do suspect she came in with an incarcerated hernia containing small bowel and likely resulting in partial bowel obstruction. She says her pain is improved and on exam it seems that the hernias are all reducible. Begin full liquids. If tolerating may discharge tomorrow. 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 Migraines, heart murmur, varicose veins, constipation(subsided since hernia surgery), gallstones. Hx ovarian cancer(in remission), lymph node removed from left side of neck. Being monitored for lesion on kidney. History of Any Multi-Drug Resistant Organisms: None Reported Past Surgical History: Adenoidectomy, Bladder Surgery, Bowel Resection, Hernia Repair, Hysterectomy, Tonsillectomy Additional Past Surgical History / Comment(s): Multiple eye surgeries, bilateral cataract surgery, surgery for detatched retina right eye, blebs removed from bilateral eyes, bladder suspension X2, hernia repair with 3 feet of bowel removed. Past Anesthesia/Blood Transfusion Reactions: Previous Problems w/ Anesthesia Additional Past Anesthesia/Blood Transfusion Reaction / Comm: States "stopped breathing when in recovery for 2nd bladder suspension." No problems since. Past Psychological History: No Psychological Hx Reported Smoking Status: Former smoker Past Alcohol Use History: None Reported Past Drug Use History: None Reported - Past Family History Mother Family Medical History: Deep Vein Thrombosis (DVT) Father Family Medical History: CVA/TIA Medications and Allergies Home Medications Medication Instructions Recorded Confirmed Type Albuterol Sulfate [Proair Hfa] 2 puff INHALATION RT-Q6H PRN 02/21/17 07/18/24 History Ipratropium-Albuterol Nebulize 3 ml INHALATION RT-QID PRN 02/21/17 07/18/24 History [Duoneb 0.5 mg-3 mg/3 ml Soln] Fluticasone Propion/Salmeterol 1 puff INHALATION RT-BID 02/24/22 07/18/24 History [Advair 500-50 Diskus] Ibuprofen [Motrin Ib] 600 mg PO Q6H PRN 07/18/24 07/18/24 History Levothyroxine Sodium [Synthroid] 100 mcg PO DAILY 07/18/24 07/18/24 History Tiotropium 2.5 Mcg/Puff [Spiriva 1 puff INHALATION RT-BID 07/18/24 07/18/24 History Respimat 2.5 Mcg] prednisoLONE ACETATE 1% OPHTH 1 drop LEFT EYE HS 07/18/24 07/18/24 History [Pred Forte 1%] prednisoLONE ACETATE 1% OPHTH 1 drop LEFT EYE TID PRN 07/18/24 07/18/24 History [Pred Forte 1%] Allergies Allergy/AdvReac Type Severity Reaction Status Date / Time clindamycin Allergy itchy Verified 07/18/24 17:21 throat morphine AdvReac states Verified 07/18/24 17:21 "b/p went low" Surgical - Exam Vital Signs Temp Pulse Resp BP Pulse Ox 98.5 F 91 18 152/75 98 07/18/24 13:48 07/18/24 13:48 07/18/24 13:48 07/18/24 13:48 07/18/24 13:48 Results - Labs 07/18/24 14:29 07/18/24 14:29 Abnormal Lab Results - Last 24 Hours (Table) 07/18/24 07/18/24 Range/Units 14:29 15:07 WBC 11.1 H (3.8-10.6) k/uL Neutrophils # 8.6 H (1.3-7.7) k/uL Urine Ketones Trace H (Negative) Ur Leukocyte Esterase Small H (Negative) Urine Mucus Moderate H (None) /hpf Diabetes panel 07/18/24 Range/Units 14:29 Sodium 140 (137-145) mmol/L Potassium 4.3 (3.5-5.1) mmol/L Chloride 107 (98-107) mmol/L Carbon Dioxide 23 (22-30) mmol/L BUN 16 (7-17) mg/dL Creatinine 0.53 (0.52-1.04) mg/dL Glucose 99 (74-99) mg/dL Calcium 9.4 (8.4-10.2) mg/dL AST 24 (14-36) U/L ALT 26 (4-34) U/L Alkaline Phosphatase 69 (38-126) U/L Total Protein 7.1 (6.3-8.2) g/dL Albumin 4.3 (3.5-5.0) g/dL Calcium panel 07/18/24 Range/Units 14:29 Calcium 9.4 (8.4-10.2) mg/dL Albumin 4.3 (3.5-5.0) g/dL Pituitary panel 07/18/24 Range/Units 14:29 Sodium 140 (137-145) mmol/L Potassium 4.3 (3.5-5.1) mmol/L Chloride 107 (98-107) mmol/L Carbon Dioxide 23 (22-30) mmol/L BUN 16 (7-17) mg/dL Creatinine 0.53 (0.52-1.04) mg/dL Glucose 99 (74-99) mg/dL Calcium 9.4 (8.4-10.2) mg/dL Adrenal panel 07/18/24 Range/Units 14:29 Sodium 140 (137-145) mmol/L Potassium 4.3 (3.5-5.1) mmol/L Chloride 107 (98-107) mmol/L Carbon Dioxide 23 (22-30) mmol/L BUN 16 (7-17) mg/dL Creatinine 0.53 (0.52-1.04) mg/dL Glucose 99 (74-99) mg/dL Calcium 9.4 (8.4-10.2) mg/dL Total Bilirubin 1.1 (0.2-1.3) mg/dL AST 24 (14-36) U/L ALT 26 (4-34) U/L Alkaline Phosphatase 69 (38-126) U/L Total Protein 7.1 (6.3-8.2) g/dL Albumin 4.3 (3.5-5.0) g/dL
[2024-07-19] MEDS ORDERED: MELATONIN 3 MG TABLET PO PRN (21:00)
[2024-07-20] MEDS: LEVOTHYROXINE 100 MCG TAB PO SCH (06:05)
[2024-07-20 08:15] VITALS: RESP 18
[2024-07-20 08:18] LABS: Basophils # (A) 0.02 X 10*3/uL (0.00-0.10); Basophils % (A) 0.3 %; Eosinophils # (A) 0.25 X 10*3/uL (0.04-0.35); Eosinophils % (A) 3.6 %; HCT 38.4 % (37.2-46.3); HGB 11.8 g/dL (12.0-15.0); Lymphocytes % (A) 24.6 %; MCH 27.1 pg (27.0-32.0); MCHC 30.7 g/dL (32.0-37.0); MCV 88.3 FL (80.0-97.0); Monocytes # (A) 0.68 X 10*3/uL (0.20-1.00); Monocytes % (A) 9.8 %; NRBC Per 100 WBC 0 X 10*3/uL (0.00-0.01); Neutrophils # (A) 4.26 X 10*3/uL (1.80-7.70); Neutrophils % (A) 61.6 %; Platelet Count 266 X 10*3/uL (140-440); RBC 4.35 X 10*6/uL (4.10-5.20); RDW 14.2 % (11.5-14.5); WBC 6.92 X 10*3/uL (4.50-10.00)
[2024-07-20 08:56] LABS: Blood Urea Nitrogen 11.4 mg/dL (9.0-27.0); Carbon Dioxide 22.4 mmol/L (21.6-31.8); Chloride 109 mmol/L (96-109); Glucose 85 mg/dL (70-110); Potassium 4.1 mmol/L (3.5-5.5); Sodium 142 mmol/L (135-145)
[2024-07-20 08:57] LABS: ALT 20 U/L (8-44); AST 14 U/L (13-35); Albumin 3.8 g/dL (3.8-4.9); Albumin/Globulin Ratio 1.65 Ratio (1.60-3.17); Alkaline Phosphatase 67 U/L (41-126); Calcium 8.9 mg/dL (8.7-10.3); Globulin 2.3 g/dL (1.6-3.3); Total Bilirubin 0.9 mg/dL (0.3-1.2); Total Protein 6.1 g/dL (6.2-8.2)
--- NOTE | 2024-07-20 13:29 | P.PN ---
Subjective Progress Note Date: 07/20/24 SURGICAL PROGRESS NOTE CHIEF COMPLAINT: Abdominal pain HISTORY OF PRESENT ILLNESS: Patient reports she is feeling better today. She is having flatus. She tolerated diet. She did report a little nausea earlier that resolved. No vomiting. Afebrile. WBC is down from 11.1-6.92 Hgb 11.8 PHYSICAL EXAM: VITAL SIGNS: Reviewed. GENERAL: Well-developed in no acute distress. ABDOMEN: Soft. obese. Nondistended. with standing hernia bulge noted to the right side of the incision and umbilicus. Mild discomfort with palpation. No discoloration. reducible NEUROLOGIC: Alert and oriented. Cranial nerves II through XII grossly intact. ASSESSMENT: 1. Partial small bowel obstruction due to incarcerated hernia containing small bowel. 2. History of incarcerated incisional hernia status post repair, small bowel resection and lysis of adhesions in 2021 3. Obesity PLAN: -Patient can be discharged from surgical standpoint -Abdominal binder ordered -Recommend Keshawn repair with possible transversus abdominis release. Recommend surgery to be completed by hernia specialist. Physician [employer] Processing Factory Worker note has been reviewed by physician. Signing provider agrees with the documented findings, assessment, and plan of care. Objective - Vital Signs Vital signs: Vital Signs Temp 98 F 07/20/24 07:35 Pulse 69 07/20/24 07:35 Resp 18 07/20/24 08:00 BP 152/82 07/20/24 07:35 Pulse Ox 97 07/20/24 07:35 FiO2 Intake & Output 07/19/24 07/20/24 07/20/24 18:59 06:59 18:59 Intake Total 540 400 Balance 540 400 Intake: Oral 540 400 Other: Voiding Method Toilet Toilet Toilet # Voids 4 1 - Labs CBC & Chem 7: 07/20/24 06:01 07/20/24 06:01 Labs: Abnormal Lab Results - Last 24 Hours (Table) 07/20/24 07/20/24 Range/Units 06:01 06:01 Hgb 11.8 L (12.0-15.0) g/dL MCHC 30.7 L (32.0-37.0) g/dL Total Protein 6.1 L (6.2-8.2) g/dL
[2024-07-20 13:30] VITALS: BP 128/83; PULSE 75; TEMP 97.9
--- NOTE | 2024-07-20 15:06 | P.DS ---
Providers Date of admission: 07/18/24 16:41 Expected date of discharge: 07/20/24 Attending physician: Kaley Felix Consults: 07/18/24 17:07 Consult Physician Urgent Consulting Provider: Jl Grady Consult Reason/Comments: Small bowel obstruction Do you want consulting provider notified?: Yes Primary care physician: Patrizia Muniz DO Hospital Course: Discharge diagnoses; Small bowel obstruction Anterior pelvic wall hernia History of hypothyroidism COPD Hospital course; 54-year-old lady with past medical history significant for hypothyroidism, COPD, multiple bowel surgery who presented to the ER because of abdominal pain. Patient said that she was all right 1 day back when she started noticing abdominal pain. Abdominal pain was central in location, felt as if she had gas stuck there, initially pain was intermittent but later became constant, not associated with any aggravating or relieving factor. Patient was having nausea but no vomiting. Patient did notice her stools were server engineer in color, last bowel movement was yesterday morning. Because of worsening abdominal pain, patient came to the ER Initial lab work done in the ER showed CBC 9.1, hemoglobin 12.9, platelet count 296, sodium 140, potassium 4.3, BUN 13, creatinine 0.53, AST 24, ALT 26, UA negative for any infection CT abdomen and pelvis done showed anterior pelvic wall hernia containing multiple dilated fluid-filled loops of bowel, partial small bowel bowel obstruction is suspected Patient admitted to internal medicine service 07/20. Patient seen and examined. Patient abdominal pain has resolved, passing gas. Patient is tolerating diet as well. General surgery recommended outpatient follow-up. PHYSICAL EXAMINATION: GENERAL: The patient is alert and oriented x3, not in any acute distress. Well developed, well nourished. HEENT: Pupils are round and equally reacting to light. EOMI. No scleral icterus. No conjunctival pallor. Normocephalic, atraumatic. No pharyngeal erythema. No thyromegaly. CARDIOVASCULAR: S1 and S2 present. No murmurs, rubs, or gallops. PULMONARY: Chest is clear to auscultation, no wheezing or crackles. ABDOMEN: Soft, nontender, nondistended, normoactive bowel sounds. No palpable organomegaly. MUSCULOSKELETAL: No joint swelling or deformity. EXTREMITIES: No cyanosis, clubbing, or pedal edema. NEUROLOGICAL: Gross neurological examination did not reveal any focal deficits. SKIN: No rashes. Dictation was produced using [employer] dictation software. please excuse any grammatical, word or spelling errors. Patient Condition at Discharge: Good Plan - Discharge Summary Discharge Rx Participant: No New Discharge Prescriptions: Continue Albuterol Sulfate [Proair Hfa] 2 puff INHALATION RT-Q6H PRN PRN Reason: Shortness Of Breath Or Wheezing Ipratropium-Albuterol Nebulize [Duoneb 0.5 mg-3 mg/3 ml Soln] 3 ml INHALATION RT-QID PRN PRN Reason: Shortness Of Breath Fluticasone Propion/Salmeterol [Advair 500-50 Diskus] 1 puff INHALATION RT- BID prednisoLONE ACETATE 1% OPHTH [Pred Forte 1%] 1 drop LEFT EYE TID PRN PRN Reason: FLARE UP Levothyroxine Sodium [Synthroid] 100 mcg PO DAILY prednisoLONE ACETATE 1% OPHTH [Pred Forte 1%] 1 drop LEFT EYE HS Ibuprofen [Motrin Ib] 600 mg PO Q6H PRN PRN Reason: Pain Tiotropium 2.5 Mcg/Puff [Spiriva Respimat 2.5 Mcg] 1 puff INHALATION RT-BID Discharge Medication List Albuterol Sulfate [Proair Hfa] 2 puff INHALATION RT-Q6H PRN 02/21/17 [History] Ipratropium-Albuterol Nebulize [Duoneb 0.5 mg-3 mg/3 ml Soln] 3 ml INHALATION RT-QID PRN 02/21/17 [History] Fluticasone Propion/Salmeterol [Advair 500-50 Diskus] 1 puff INHALATION RT-BID 02/24/22 [History] Ibuprofen [Motrin Ib] 600 mg PO Q6H PRN 07/18/24 [History] Levothyroxine Sodium [Synthroid] 100 mcg PO DAILY 07/18/24 [History] Tiotropium 2.5 Mcg/Puff [Spiriva Respimat 2.5 Mcg] 1 puff INHALATION RT-BID 07/18/24 [History] prednisoLONE ACETATE 1% OPHTH [Pred Forte 1%] 1 drop LEFT EYE HS 07/18/24 [History] prednisoLONE ACETATE 1% OPHTH [Pred Forte 1%] 1 drop LEFT EYE TID PRN 07/18/24 [History] Follow up Appointment(s)/Referral(s): Jl Grady MD [Medical Doctor] - 1 Week Patrizia Muniz DO [Primary Care Provider] - 1-2 days Discharge Disposition: HOME SELF-CARE
== END 2024-07-20 15:26 | disposition home or self-care (01) | DRG 394 ==
LOC: SUPCPDRO 13:46 → EC 13:46 → 6NMEDSUR 16:41
PROVIDERS: ADMIT Internal Medicine; ATTEND Internal Medicine
DX: K43.6 Other and unspecified ventral hernia with obstruction, without gangrene (principal); Z68.41 Body mass index [BMI] 40.0-44.9, adult; E03.9 Hypothyroidism, unspecified; E66.9 Obesity, unspecified; J44.9 Chronic obstructive pulmonary disease, unspecified; H54.8 Legal blindness, as defined in USA; Z90.49 Acquired absence of other specified parts of digestive tract; Z79.890 Hormone replacement therapy; Z85.038 Personal history of other malignant neoplasm of large intestine; Z85.43 Personal history of malignant neoplasm of ovary; Z87.891 Personal history of nicotine dependence
CPT/HCPCS: 36415; 74177; 80053; 81001; 83605; 83690; 85025; 85610; 85730; 96361; 96374; 96375; 99285